=== PATIENT | female | born 1960 | race Hispanic/Latino ===

== ENCOUNTER 2017-09-06 22:08 | Emergency (ER) | payer MEDICARE ==
[2017-09-06] MEDS ORDERED: SODIUM CHLORIDE 0.9% 1000ML 3,000 ML IV ONE (22:30)
[2017-09-06] MEDS ORDERED: CEFTRIAXONE SODIUM 2 GM VIAL ONE (22:30)
[2017-09-06] MEDS ORDERED: ACETAMINOPHEN EXTRA STRENGTH 500 MG TABLET ONE (22:31)
[2017-09-06 22:35] LABS: BASOPHILS % (AUTO) 1.8 % (0.0-5.0); EOSINOPHILS % (AUTO) 1.5 % (0.0-8.0); HEMATOCRIT 48.7 % (36-48); LYMPHOCYTES % (AUTO) 7.7 % (21.0-51.0); MEAN CORPUSCULAR HEMOGLOBIN 30.9 pg (27.0-33.0); MEAN CORPUSCULAR HGB CONC 34.2 g/dL (32.0-36.0); MEAN CORPUSCULAR VOLUME 90.4 fL (79-99); MONOCYTES % (AUTO) 5.1 % (3.0-13.0); NEUTROPHILS % (AUTO) 83.9 % (40.0-77.0); PLATELET COUNT (AUTO) 178 K/uL (130-400); RED BLOOD CELL COUNT(AUTO) 5.39 MIL/uL (4.00-5.50); WHITE BLOOD COUNT (AUTO) 6.7 K/uL (4.8-10.8)
[2017-09-06 22:53] LABS: INR 0.93 (0.85-1.15); PARTIAL THROMBOPLASTIN TIME 29.6 SEC (26.3-35.5); PROTHROMBIN TIME 9.8 SEC (9.6-11.6)
[2017-09-06 22:55] LABS: BILIRUBIN,URINE Negative (NEGATIVE); COLOR,URINE Yellow (YELLOW); GLUCOSE, URINE (UA) Negative (NEGATIVE); KETONES,URINE Negative (NEGATIVE); LEUKOCYTE ESTERASE ,URINE Negative (NEGATIVE); NITRATE,URINE Negative (NEGATIVE); OCCULT BLOOD,URINE Negative (NEGATIVE); PROTEIN,URINE Negative (NEGATIVE)
[2017-09-06 22:59] LABS: APPEARANCE,URINE CLEAR (CLEAR)
[2017-09-06 23:01] LABS: CARBON DIOXIDE 25 mmol/L (21-32); CHLORIDE 103 mmol/L (101-111); CREATININE 0.6 mg/dL (0.5-1.5); GLOMERULAR FILTR. RATE CALC 110 mL/min (>60); GLUCOSE,RANDOM 102 mg/dL (70-105); SODIUM SERUM 138 mmol/L (136-145); UREA NITROGEN, BLOOD 5 mg/dL (7-18)
[2017-09-06 23:20] LABS: ALANINE AMINOTRANSFERASE 39 U/L (12-78); ALBUMIN 3.3 g/dL (3.5-5.0); ASPARTATE AMINOTRANSFERASE 50 U/L (10-37); BILIRUBIN,TOTAL 0.4 mg/dL (0.2-1.0); CREATINE KINASE MB < 0.5 ng/mL (0.5-3.6); CREATINE KINASE, TOTAL 116 U/L (21-232); MYOGLOBIN 46 ng/mL (10-92); TOTAL PROTEIN, SERUM 7.9 g/dL (6.0-8.3); TROPONIN I < 0.04 ng/mL (0.00-0.06)
== END 2017-09-07 00:26 | disposition home or self-care (01) ==
LOC: EDH 22:08
DX: J10.1 Influenza due to other identified influenza virus with other respiratory manifestations (principal); E86.0 Dehydration; M54.9 Dorsalgia, unspecified; E11.9 Type 2 diabetes mellitus without complications; E07.9 Disorder of thyroid, unspecified; Z79.4 Long term (current) use of insulin; Z72.0 Tobacco use; Z88.8 Allergy status to other drugs, medicaments and biological substances
CPT/HCPCS: 36415; 71045; 80053; 81003; 82550; 82553; 83605; 83874; 84484; 85025; 85610; 85730; 87040 ×2; 87088; 87804 ×2; 93005; 96361; 96374; 99285; J0696; J7030

== ENCOUNTER 2022-05-13 08:11 | Emergency (ER) | payer MEDICARE ==
[~2022-05-13] VITALS: Ht 162.6 cm; Wt 99.8 kg
[2022-05-13 09:40] VITALS: BP 130/70
[2022-05-13] MEDS ORDERED: IBUP-1493 PO (09:43)
== END 2022-05-13 10:05 | disposition home or self-care (01) ==
LOC: EDH 08:11
DX: S00.83XA Contusion of other part of head, initial encounter (principal); M25.561 Pain in right knee; M25.512 Pain in left shoulder; M54.2 Cervicalgia; M25.571 Pain in right ankle and joints of right foot; I10 Essential (primary) hypertension; Z88.8 Allergy status to other drugs, medicaments and biological substances; X50.1XXA Overexertion from prolonged static or awkward postures, initial encounter; Z96.651 Presence of right artificial knee joint; Y93.89 Activity, other specified; Y92.89 Other specified places as the place of occurrence of the external cause; Y99.8 Other external cause status
CPT/HCPCS: 70450; 71045; 72125; 73030; 73552; 73590

== ENCOUNTER → 2022-08-26 | Outpatient (CLI) | payer MEDICARE ==
[~2022-08-26] MED LIST: IBUP-1493 PO
== END | disposition home or self-care (01) ==
LOC: SHCH 14:25
PROVIDERS: ATTEND Student in an Organized Health Care Education/Training Program
DX: I51.7 Cardiomegaly (principal); I31.39 Other pericardial effusion (noninflammatory)
CPT/HCPCS: 93306

== ENCOUNTER 2022-10-28 11:33 | Emergency (ER) | payer MEDICARE ==
[~2022-10-28] VITALS: Ht 162.6 cm; Wt 99.8 kg
[~2022-10-28 11:33] MED LIST changes: +BIOT1TAB22 PO; +FLUO20CA36 PO; +HYDR-4064 PO; -IBUP-1493 PO; +LEVO125C4 PO; +MECL-160 PO; +MELO-108 PO; +OMEP40CA21 PO; +PREG75CA75 PO; +VALS160T29 PO; +ZOLP10TA2 PO
[2022-10-28 11:34] VITALS: BP 127/79
[2022-10-28] MEDS ORDERED: MORPHINE 4 MG SYG IVP ONE (12:00)
[2022-10-28] MEDS ORDERED: PROMETHAZINE HCL 25 MG/ML 1ML AMPULE IM SCH (12:00)
[2022-10-28 12:07] LABS: BASOPHILS % (AUTO) 0.4 % (0.0-5.0); EOSINOPHILS % (AUTO) 4.3 % (0.0-8.0); HEMATOCRIT 42.8 % (36-48); LYMPHOCYTES % (AUTO) 18.8 % (21.0-51.0); MEAN CORPUSCULAR HEMOGLOBIN 35.3 pg (27.0-33.0); MEAN CORPUSCULAR HGB CONC 33.2 g/dL (32.0-36.0); MEAN CORPUSCULAR VOLUME 106.5 fL (79-99); NEUTROPHILS % (AUTO) 70.3 % (40.0-77.0); PLATELET COUNT (AUTO) 207 K/uL (130-400); RED BLOOD CELL COUNT(AUTO) 4.02 MIL/uL (4.00-5.50); RED CELL DISTRIBUTION WIDTH 13.5 % (11.0-15.5); WHITE BLOOD COUNT (AUTO) 8.1 K/uL (4.8-10.8)
[2022-10-28 12:16] LABS: CREATININE 0.9 mg/dL (0.5-1.5); POTASSIUM 4.2 mmol/L (3.5-5.1)
[2022-10-28 12:20] LABS: ALBUMIN 3.3 g/dL (3.5-5.0); TOTAL PROTEIN, SERUM 6.8 g/dL (6.0-8.3)
[2022-10-28] MEDS ORDERED: CYCL10TA16 PO (13:29)
[2022-10-28] MEDS ORDERED: OXYC-38 PO ×2 (13:29)
[2022-10-28] MEDS ORDERED: NAPR-1180 PO (13:29)
== END 2022-10-28 14:07 | disposition home or self-care (01) ==
LOC: EDH 11:33
DX: M54.12 Radiculopathy, cervical region (principal); I10 Essential (primary) hypertension; E03.9 Hypothyroidism, unspecified; E11.9 Type 2 diabetes mellitus without complications; E78.00 Pure hypercholesterolemia, unspecified; Z79.899 Other long term (current) drug therapy; Z98.890 Other specified postprocedural states; Z88.8 Allergy status to other drugs, medicaments and biological substances
CPT/HCPCS: 99285; 70450; 96374; 80053; 85025; 36415; 72125; 96372; J2550; J2270

== ENCOUNTER → 2022-11-08 | Outpatient (CLI) | payer MEDICARE ==
[~2022-11-08] MED LIST changes: +CYCL10TA16 PO; +IOHEXOL 350 MG/ML 100ML INFUS..BTL IV ONE; +METOPROLOL TARTRATE 1 MG/ML 5ML VIAL IV ONE; +NAPR-1180 PO; +OXYC-38 PO
== END | disposition home or self-care (01) ==
LOC: RAH 09:35
PROVIDERS: ATTEND Student in an Organized Health Care Education/Training Program
DX: R07.9 Chest pain, unspecified (principal)
CPT/HCPCS: 75574; J3490 ×2; Q9967

== ENCOUNTER 2022-11-28 05:52 | Day surgery (SDC) | payer MEDICARE ==
[2022-11-24 09:22] VITALS: BP 149/82
[2022-11-24 09:38] LABS: BASOPHILS % (AUTO) 0.4 % (0.0-5.0); EOSINOPHILS % (AUTO) 2.4 % (0.0-8.0); HEMATOCRIT 43.9 % (36-48); LYMPHOCYTES % (AUTO) 11.8 % (21.0-51.0); MEAN CORPUSCULAR HEMOGLOBIN 34.2 pg (27.0-33.0); MEAN CORPUSCULAR VOLUME 103.5 fL (79-99); MONOCYTES % (AUTO) 5.4 % (3.0-13.0); NEUTROPHILS % (AUTO) 79.5 % (40.0-77.0); PLATELET COUNT (AUTO) 207 K/uL (130-400); RED BLOOD CELL COUNT(AUTO) 4.24 MIL/uL (4.00-5.50); WHITE BLOOD COUNT (AUTO) 10.4 K/uL (4.8-10.8)
[2022-11-24 09:45] LABS: APPEARANCE,URINE CLEAR (CLEAR); BILIRUBIN,URINE NEGATIVE (NEGATIVE); COLOR,URINE YELLOW (YELLOW); GLUCOSE, URINE (UA) NEGATIVE (NEGATIVE); KETONES,URINE NEGATIVE (NEGATIVE); LEUKOCYTE ESTERASE ,URINE NEGATIVE Leu/uL (NEGATIVE); NITRATE,URINE NEGATIVE (NEGATIVE); OCCULT BLOOD,URINE NEGATIVE (NEGATIVE); PH,URINE 6.5 (5.0-8.0); PROTEIN,URINE NEGATIVE (NEGATIVE); UROBILINOGEN,URINE 3 mg/dL (0.2-1.0)
[2022-11-24 09:46] LABS: CREATININE 0.7 mg/dL (0.5-1.5); POTASSIUM 4.1 mmol/L (3.5-5.1)
[2022-11-24 09:49] LABS: INR 0.93 (0.85-1.15); PROTHROMBIN TIME 10.1 SEC (9.6-11.6)
[2022-11-24 09:50] LABS: PARTIAL THROMBOPLASTIN TIME 30.1 SEC (26.3-35.5)
[2022-11-24 10:00] LABS: B-TYPE NATRIURETIC PEPTIDE 41 pg/mL (0-100)
[2022-11-24 10:09] LABS: BACTERIA,URINE RARE /HPF (None Seen); SQUAMOUS EPITHELIAL CELL,UR RARE /HPF (0-2); WBC,URINE 0-1 /HPF (0-1)
[2022-11-28] VITALS (10 sets, daily range): BP systolic 99–127; BP diastolic 54–78
[~2022-11-28] VITALS: Ht 162.6 cm; Wt 98.2 kg
[~2022-11-28 05:52] MED LIST changes: +ASPI-1197 PO; +ATOR40TA71 PO; -BIOT1TAB22 PO; -CYCL10TA16 PO; -FLUO20CA36 PO; +FLUO40CA49 PO; -IOHEXOL 350 MG/ML 100ML INFUS..BTL IV ONE; -MELO-108 PO; +METO-408 PO; -METOPROLOL TARTRATE 1 MG/ML 5ML VIAL IV ONE; -NAPR-1180 PO; -OXYC-38 PO; +SEMA1PEN3 SQ
[2022-11-28] MEDS ORDERED: 0.9%NACL 1000ML 1,000 ML IV ONE (06:12)
[2022-11-28] MEDS ORDERED: NITROGLYCERIN 50MG VIAL ONE (07:14)
[2022-11-28] MEDS ORDERED: LIDOCAINE HCL 400MG/20ML VIAL ONE (07:14)
[2022-11-28] MEDS ORDERED: IOHEXOL 350 MG/ML 100ML INFUS..BTL IV ONE (07:14)
[2022-11-28] MEDS ORDERED: HEPARIN 10,000 UNIT/10ML (1,000 UNIT/ML) VIAL ONE (07:14)
[2022-11-28] MEDS ORDERED: VERAPAMIL HCL 2.5 MG/ML VIAL ONE (07:14)
[2022-11-28] MEDS ORDERED: MIDAZOLAM HCL 1 MG/ML 2ML VIAL ONE ×2 (07:14→07:35)
[2022-11-28] MEDS ORDERED: FENTANYL CITRATE PF 50 MCG/1 ML 2ML VIAL ONE (07:14)
[2022-11-28] MEDS ORDERED: DiphenhydrAMINE HCL 50 MG/ML VIAL ONE (07:38)
[2022-11-28] MEDS ORDERED: DEXTROSE 50%-WATER 50 ML DISP.SYRIN IV PRN (08:30)
[2022-11-28] MEDS ORDERED: 0.9%NACL 1000ML 1,000 ML IV SCH (08:30)
[2022-11-28] MEDS ORDERED: GLUCAGON 1MG KIT 1 MG ML IM PRN (08:30)
== END 2022-11-28 12:35 | disposition home or self-care (01) ==
LOC: DAH 05:52
PROVIDERS: ATTEND Student in an Organized Health Care Education/Training Program
DX: I25.119 Atherosclerotic heart disease of native coronary artery with unspecified angina pectoris (principal); I10 Essential (primary) hypertension; E78.5 Hyperlipidemia, unspecified; E03.9 Hypothyroidism, unspecified; K21.9 Gastro-esophageal reflux disease without esophagitis; E66.01 Morbid (severe) obesity due to excess calories; F17.200 Nicotine dependence, unspecified, uncomplicated; Z79.01 Long term (current) use of anticoagulants; Z79.899 Other long term (current) drug therapy; Z82.49 Family history of ischemic heart disease and other diseases of the circulatory system; Z68.37 Body mass index [BMI] 37.0-37.9, adult; Z79.82 Long term (current) use of aspirin
CPT/HCPCS: 80048; 83880; 85025; 85610; 85730; 81001; 36415; 71045; 93005; 93458; 82948 ×2; C1769; C1894 ×2; A4649; J1200; J3010; J3490 ×3; J7030; J1644 ×2; J2250 ×2; Q9967; A4215; A4222; A6260; A4221; A4663; A4216; A6206; A4606; Q9965; A4223 ×3; 96360; 96361; 99156; 99157

== ENCOUNTER 2023-05-24 15:02 | Emergency (ER) | payer MEDICARE ==
[~2023-05-24] VITALS: Ht 157.5 cm; Wt 99.8 kg
[~2023-05-24 15:02] MED LIST changes: -MECL-160 PO; +MECL-302 PO; -PREG75CA75 PO; +PREG75CA76 PO
[2023-05-24] MEDS ORDERED: KETOROLAC 30MG VIAL (30MG/ML) IM ONE (15:30)
[2023-05-24] MEDS ORDERED: IBUP-2070 PO (16:33)
[2023-05-24] MEDS ORDERED: HYDROCODONE/ACETAMINOPHEN 5/325 MG TAB PO ONE (17:00)
[2023-05-24] MEDS ORDERED: ONDANSETRON ODT 4MG TAB SL ONE (17:00)
[2023-05-24 17:53] VITALS: BP 138/78; PULSE 68; RESP 18; O2SAT 99
== END 2023-05-24 18:09 | disposition home or self-care (01) ==
LOC: EDH 15:02
DX: M25.561 Pain in right knee (principal); M25.562 Pain in left knee; M25.572 Pain in left ankle and joints of left foot; Z79.82 Long term (current) use of aspirin; Z79.899 Other long term (current) drug therapy; Z98.890 Other specified postprocedural states; Z88.8 Allergy status to other drugs, medicaments and biological substances
CPT/HCPCS: 99283; 73562; 96372; J1885

== ENCOUNTER → 2023-08-30 | Emergency (ER) | payer MEDICARE ==
[~2023-08-30] VITALS: Ht 162.6 cm; Wt 99.8 kg
[~2023-08-30] MED LIST changes: +IBUP-2070 PO; +MECL-160 PO; -MECL-302 PO
[2023-08-30 11:02] VITALS: BP 144/98; PULSE 85; RESP 18
[2023-08-30 11:32] LABS: BASOPHILS # (AUTO) 0.04 K/uL (0.00-0.20); BASOPHILS % (AUTO) 0.4 % (0.0-5.0); EOSINOPHILS # (AUTO) 0.09 K/uL (0.00-0.70); EOSINOPHILS % (AUTO) 0.8 % (0.0-8.0); HEMATOCRIT 47.4 % (36-48); IMMATURE GRANULOCYTE ABSOLUTE 0.06 K/uL (0-1); LYMPHOCYTES # (AUTO) 1.2 K/uL (1.0-4.8); LYMPHOCYTES % (AUTO) 11.1 % (21.0-51.0); MEAN CORPUSCULAR HEMOGLOBIN 29.8 pg (27.0-33.0); MEAN CORPUSCULAR HGB CONC 32.5 g/dL (32.0-36.0); MEAN CORPUSCULAR VOLUME 91.7 fL (79-99); MONOCYTES # (AUTO) 0.7 K/uL (0.1-1.0); MONOCYTES % (AUTO) 6.3 % (3.0-13.0); NEUTROPHILS # (AUTO) 8.9 K/uL (1.8-7.7); NEUTROPHILS % (AUTO) 80.9 % (40.0-77.0); PLATELET COUNT (AUTO) 252 K/uL (130-400); RED BLOOD CELL COUNT(AUTO) 5.17 MIL/uL (4.00-5.50); RED CELL DISTRIBUTION WIDTH 14.2 % (11.0-15.5)
[2023-08-30 11:43] LABS: CREATININE 1.1 mg/dL (0.5-1.5); POTASSIUM 3.8 mmol/L (3.5-5.1)
[2023-08-30 11:47] LABS: ALBUMIN 3.5 g/dL (3.5-5.0); TOTAL PROTEIN, SERUM 7.6 g/dL (6.0-8.3)
[2023-08-30 11:54] LABS: APPEARANCE,URINE CLEAR (CLEAR); BILIRUBIN,URINE NEGATIVE (NEGATIVE); COLOR,URINE YELLOW (YELLOW); GLUCOSE, URINE (UA) NEGATIVE (NEGATIVE); KETONES,URINE 5 mg/dL (NEGATIVE); LEUKOCYTE ESTERASE ,URINE NEGATIVE Leu/uL (NEGATIVE); NITRATE,URINE NEGATIVE (NEGATIVE); OCCULT BLOOD,URINE NEGATIVE (NEGATIVE); PROTEIN,URINE 20 mg/dL (NEGATIVE); UROBILINOGEN,URINE 0.2 mg/dL (0.2-1.0)
[2023-08-30 11:59] LABS: ADD UA MICROSCOPIC YES
[2023-08-30 12:00] LABS: MUCUS,URINE RARE LPF (None Seen); SQUAMOUS EPITHELIAL CELL,UR RARE /HPF (0-2)
== END ==
LOC: EDH 10:17
DX: R10.9 Unspecified abdominal pain (principal); R11.0 Nausea; Z53.21 Procedure and treatment not carried out due to patient leaving prior to being seen by health care provider
CPT/HCPCS: 36415; 80053; 81001; 83690; 85025; 99281

== ENCOUNTER → 2024-06-05 | Outpatient (CLI) | payer MEDICARE ==
[~2024-06-05] MED LIST changes: -MECL-160 PO; +MECL-302 PO
== END | disposition home or self-care (01) ==
LOC: RAH 13:26
PROVIDERS: ATTEND Family Medicine
DX: Z12.31 Encounter for screening mammogram for malignant neoplasm of breast (principal)
CPT/HCPCS: 77067

== ENCOUNTER → 2024-10-09 | Outpatient (CLI) | payer MEDICARE ==
[~2024-10-09] MED LIST changes: -LEVO125C4 PO; +LEVO125C5 PO; +ZOLP-685 PO; -ZOLP10TA2 PO
--- NOTE | 2024-10-09 17:07 | HMCIMG ---
FACIAL BONES COMP 3+VWS REASON: Contusion of other part of head, initial encounter. COMPARISON: None TECHNIQUE: 3 images of facial bones were obtained. FINDINGS: No acute displaced fracture is seen. IMPRESSION: Findings as described above.
--- NOTE | 2024-10-09 17:12 | HMCIMG ---
KNEE/PATELLA 1-2VWS LT HISTORY: Injury COMPARISON: None TECHNIQUE: 2 images of the left knee were obtained. FINDINGS: Total left knee replacement changes are seen. Bony osteopenia is seen. There is no acute displaced fracture or dislocation. Degenerative changes are seen. IMPRESSION: 1. Findings as described above.
--- NOTE | 2024-10-09 17:12 | HMCIMG ---
CERV SPINE 2-3VWS HISTORY: Injury COMPARISON: None FINDINGS: 4 images of cervical spine were obtained. Fixation pins and screws are seen traversing the C4, C5-C6 with disc fusion. Anterior osteophyte is seen at anterior aspect of C6. There are degenerative changes with some posterior spondylosis. There is straightening of normal lordotic curvature which may be related to muscle spasm or positioning. No loss of vertebral height is seen. No fracture or dislocation is seen. Degenerative changes are seen. IMPRESSION: 1. No fracture is seen. DJD.
== END | disposition home or self-care (01) ==
LOC: RAH 12:02
PROVIDERS: ATTEND Family Medicine
DX: S00.83XA Contusion of other part of head, initial encounter (principal); S80.912A Unspecified superficial injury of left knee, initial encounter; S14.101A Unspecified injury at C1 level of cervical spinal cord, initial encounter; M02.38 Reiter's disease, vertebrae; M47.812 Spondylosis without myelopathy or radiculopathy, cervical region; M17.12 Unilateral primary osteoarthritis, left knee; Z96.652 Presence of left artificial knee joint; X58.XXXA Exposure to other specified factors, initial encounter; Y93.89 Activity, other specified; Y92.89 Other specified places as the place of occurrence of the external cause; Y99.8 Other external cause status
CPT/HCPCS: 70150; 72040; 73560

== ENCOUNTER 2024-11-27 16:28 | Emergency (ER) | payer MEDICARE ==
[~2024-11-27] VITALS: Ht 160 cm; Wt 99.8 kg
--- NOTE | 2024-11-27 17:10 | ERN ---
ED Note History of Present Illness Stated Complaint: VAG PAIN Chief Complaint: Pelvic Pain Time Seen by MD: 16:50 Time Seen by Midlevel: 16:51 Dictation: 64-year-old female presents to the emergency department due to reported having suprapubic pain that began 3 days ago. Patient states that the pain has been consistent. She reports having her pain level as an 8/10. Patient states that she did have a temperature yesterday of 101 F. She states that she finds it painful when she wipes after urinating. Patient states that she is concerned due to report of having had urethral mesh that was applied and 10/22/24 in [facility]. Currently, she denies having any fever but does report having some chills. Allergies: Coded Allergies: adhesive tape (Unverified Allergy, Unknown, 03/19/23) hydrochlorothiazide (Unverified Allergy, Unknown, 10/04/22) lisinopril (Unverified Allergy, Unknown, 05/13/22) varenicline (Unverified Allergy, Unknown, 03/19/23) Emergency Care CHIP TESTER: None Home Meds Active Scripts Ibuprofen (Ibuprofen) 600 Mg Tablet, 600 MG PO Q6H PRN for PAIN, #20 TAB Prov:BERENICE COURTNEY MD 05/24/23 Reported Medications Semaglutide (Ozempic) 1 Mg/0.75 Ml Pen.injctr, 1 MG SQ QWEEK 11/24/22 Aspirin (Aspirin) 81 Mg Tab.chew, 81 MG PO HS, TAB.CHEW 11/24/22 Metoprolol Succinate (Metoprolol Succinate) 25 Mg Tab.er.24h, 25 MG PO HS, TAB METOPROLOL SUCCINATE INCREASE TO 50 MG BY MOUTH AT NIGHT 11/24/22 Atorvastatin Calcium (Atorvastatin Calcium) 40 Mg Tablet, 40 MG PO HS, TAB 11/24/22 Fluoxetine HCl (Fluoxetine HCl) 40 Mg Capsule, 40 MG PO DAILY, CAP 11/24/22 Levothyroxine Sodium (Levothyroxine) 125 Mcg Capsule, 125 MCG PO AM, CAP 10/04/22 Hydrocodone/Acetaminophen (Hydrocodon-Acetaminoph 7.5-325) 1 Each Tablet, 1 EACH PO TIDP PRN for PAIN, TAB 10/04/22 Zolpidem Tartrate (Ambien) 10 Mg Tablet, 10 MG PO HS, TAB 10/04/22 Meclizine HCl (Meclizine HCl) 25 Mg Tablet, 25 MG PO Q12H PRN for DIZZY, TAB 10/04/22 Valsartan (Valsartan) 160 Mg Tablet, 160 MG PO HS, TAB 10/04/22 Pregabalin (Pregabalin) 75 Mg Capsule, 75 MG PO BID, CAP 10/04/22 Omeprazole (Omeprazole) 40 Mg Capsule.dr, 40 MG PO AM, CAP 10/04/22 Past Medical History Past Medical History: Diabetes-Type II, Hypertension, Other Additional Past Medical Hx: LOWER DISC HERNIATION Surgical History: Hysterectomy, Other, Surgical History Other: BILATERAL TOTAL KNEE REPLACEMENTS Family History: HTN Social History: Negative, Lives with family RN Note Reviewed/Agreed w/PFSH: Yes Review of System Dictation Constitutional: Fever, chills Abdomen/GI: Abdominal pain Initial Vital Sign VS Vital Signs Date Time Temp Pulse Resp B/P (MAP) Pulse Ox O2 Delivery O2 Flow Rate FiO2 11/27/24 16:31 98.4 86 17 102/55 98 Room Air 0 11/27/24 16:56 21 Physical Exam Dictation General: awake, alert, NAD Head/Face: Normocephalic, atraumatic Eyes: PERRL, EOMI ENT: Oral mucosa moist Neck: Trachea midline, supple Cardiovascular: RRR, no edema Respiratory: Symmetrical, non-labored Abdomen: Soft, suprapubic tenderness, voluntary guarding, non-distended, no guarding. Skin: Warm, dry, good turgor, no rash MS/Extremity: Pulses equal, no cyanosis, neurovascular intact, FROM Neuro: COAx4, GCS 15, steady gait, Psych: Normal behavior, mood, and affect normal Results (Laboratory/Radiology) Laboratory/Radiology Laboratory Tests Test 11/27/24 17:18 11/27/24 18:03 White Blood Count 7.1 K/uL (4.8-10.8) Red Blood Count 4.78 MIL/uL (4.00-5.50) Hemoglobin 14.2 g/dL (12.0-16.0) Hematocrit 43.1 % (36-48) Mean Corpuscular Volume 90.2 fL (79-99) Mean Corpuscular Hemoglobin 29.7 pg (27.0-33.0) Mean Corpuscular Hemoglobin Concent 32.9 g/dL (32.0-36.0) Red Cell Distribution Width 15.0 % (11.0-15.5) Platelet Count 207 K/uL (130-400) Mean Platelet Volume 11.7 fL (7.5-10.5) H Immature Granulocyte % (Auto) 0.4 % (0-1) Neutrophils (%) (Auto) 66.3 % (40.0-77.0) Lymphocytes (%) (Auto) 22.4 % (21.0-51.0) Monocytes (%) (Auto) 7.7 % (3.0-13.0) Eosinophils (%) (Auto) 2.8 % (0.0-8.0) Basophils (%) (Auto) 0.4 % (0.0-5.0) Neutrophils # (Auto) 4.7 K/uL (1.8-7.7) Lymphocytes # (Auto) 1.6 K/uL (1.0-4.8) Monocytes # (Auto) 0.6 K/uL (0.1-1.0) Eosinophils # (Auto) 0.20 K/uL (0.00-0.70) Basophils # (Auto) 0.03 K/uL (0.00-0.20) Absolute Immature Granulocyte (auto 0.03 K/uL (0-1) Nucleated Red Blood Cells 0.0 % (0.0-0.19) Sodium Level 140 mmol/L (136-145) Potassium Level 4.2 mmol/L (3.5-5.1) Chloride Level 107 mmol/L (101-111) Carbon Dioxide Level 29 mmol/L (21-32) Blood Urea Nitrogen 20 mg/dL (7-18) H Creatinine 1.0 mg/dL (0.5-1.0) Glomerular Filtration Rate Calc 63 mL/min (>90) Random Glucose 89 mg/dL (70-105) Total Calcium 8.7 mg/dL (8.5-10.1) Total Bilirubin 0.3 mg/dL (0.2-1.0) Aspartate Amino Transf (AST/SGOT) 18 U/L (10-37) Alanine Aminotransferase (ALT/SGPT) 19 U/L (12-78) Alkaline Phosphatase 81 U/L (50-136) Total Protein 6.9 g/dL (6.0-8.3) Albumin 3.2 g/dL (3.5-5.0) L Urine Color LIGHT-YELLOW (YELLOW) Urine Appearance CLEAR (CLEAR) Urine pH 5.5 (5.0-8.0) Urine Specific [place] 1.007 (1.001-1.031) Urine Protein NEGATIVE mg/dL (NEGATIVE) Urine Glucose (UA) NEGATIVE mg/dL (NEGATIVE) Urine Ketones NEGATIVE mg/dL (NEGATIVE) Urine Occult Blood NEGATIVE (NEGATIVE) Urine Nitrate NEGATIVE (NEGATIVE) Urine Bilirubin NEGATIVE mg/dL (NEGATIVE) Urine Urobilinogen 0.2 mg/dL (0.2-1.0) Urine Leukocyte Esterase 75 Lionel/uL (NEGATIVE) H Urine RBC 0-1 /HPF (0-1) Urine WBC 2-5 /HPF (0-1) H Urine Squamous Epithelial Cells RARE /HPF (0-2) Urine Bacteria None /HPF (None Seen) Labs Reviewed?: Yes CT Scan Comment: CT abdomen/pelvis with IV contrast with no pertinent findings. ED Course ED Course Orders Procedure Category Date Status Time Cbc With Differential LAB 11/27/24 Complete 17:06 Comprehensive LAB 11/27/24 Complete Metabolic Panel 17:06 Urinalysis Profile LAB 11/27/24 Complete 17:06 Ct Abdomen/Pelvis CT 11/27/24 Resulted W/Contrast 17:06 0.9%Nacl 1000ml (Ns PHA 11/27/24 Complete 1000ml) 17:30 Ketorolac PHA 11/27/24 Complete Tromethamine 30mg/Ml 17:30 Culture Urine ANA 11/27/24 In Process 18:12 Iohexol (Omnipaque) PHA 11/27/24 Complete 18:17 Current Medications Medications (Trade) Dose Ordered Sig/Kwaku Route PRN Reason Start Time Stop Time Status Last Admin Dose Admin Iohexol (Omnipaque) 35,000 mg STK-MED ONCE IV 11/27/24 18:17 11/27/24 18:17 DC Ketorolac Tromethamine (toRADol) 30 mg ONCE ONCE IVP 11/27/24 17:30 11/27/24 17:31 DC 11/27/24 17:52 Sodium Chloride 1,000 ml @ 0 mls/hr ONCE ONCE IV 11/27/24 17:30 11/27/24 17:31 DC 11/27/24 17:51 Vital Signs Date Time Temp Pulse Resp B/P (MAP) Pulse Ox O2 Delivery O2 Flow Rate FiO2 11/27/24 18:05 98.1 81 18 100/46 98 Room Air* 0 21 11/27/24 16:56 98.1 81 18 98/52 98 Room Air* 0 21 11/27/24 16:31 98.4 86 17 102/55 98 Room Air 0 Medical Decision Making MDM MDM: Differential diagnosis: Acute abdominal pain, acute UTI, small-bowel obstruction. Rationale: Tests considered and ordered secondary to shared decision making include: Previous outside records reviewed: Old ER visits. Risk of complication and/or morbidity or mortality of patient management: None Medications-Per medication reconciliation Need for hospitalization: Patient does not meet criteria for hospitalization. Need for emergency major/minor surgery: No There are no social concerns with this patient. Prescription drug management Prescriptions will include symptomatic care Patient's prior external medical records from other ER visits were reviewed by me as indicated. Prior testing and results from previous visits were reviewed. Prior tests were taken into account with medical decision making and resource utilization, independent historian/historians were used to obtain complete medical history. I independently interpreted the test that were performed, results were reviewed by me and considered findings on radiology if ordered. Medical management and examination interpretation discussions were had by me with other qualified healthcare professionals as indicated for the patient's care. DX & DISP Disposition: Discharge Departure Impression: Primary Impression: Acute abdominal pain Additional Impression: Acute UTI Condition: Stable Scripts Cephalexin (Cephalexin) 500 Mg Tablet 1 TAB PO BID for 7 Days, #14 TAB 0 Refills Prov: MAGED CRUZ 11/27/24 Referrals: ALBERTO RODRIGUEZ MD (PCP) MAGED CRUZ Nov 27, 2024 17:10
[2024-11-27 17:26] LABS: BASOPHILS # (AUTO) 0.03 K/uL (0.00-0.20); BASOPHILS % (AUTO) 0.4 % (0.0-5.0); EOSINOPHILS % (AUTO) 2.8 % (0.0-8.0); HEMATOCRIT 43.1 % (36-48); IMMATURE GRANULOCYTE ABSOLUTE 0.03 K/uL (0-1); LYMPHOCYTES # (AUTO) 1.6 K/uL (1.0-4.8); LYMPHOCYTES % (AUTO) 22.4 % (21.0-51.0); MEAN CORPUSCULAR HEMOGLOBIN 29.7 pg (27.0-33.0); MEAN CORPUSCULAR HGB CONC 32.9 g/dL (32.0-36.0); MEAN CORPUSCULAR VOLUME 90.2 fL (79-99); MONOCYTES # (AUTO) 0.6 K/uL (0.1-1.0); MONOCYTES % (AUTO) 7.7 % (3.0-13.0); NEUTROPHILS # (AUTO) 4.7 K/uL (1.8-7.7); NEUTROPHILS % (AUTO) 66.3 % (40.0-77.0); PLATELET COUNT (AUTO) 207 K/uL (130-400); RED BLOOD CELL COUNT(AUTO) 4.78 MIL/uL (4.00-5.50); WHITE BLOOD COUNT (AUTO) 7.1 K/uL (4.8-10.8)
[2024-11-27 17:42] LABS: POTASSIUM 4.2 mmol/L (3.5-5.1)
[2024-11-27 17:44] LABS: ALBUMIN 3.2 g/dL (3.5-5.0); BILIRUBIN,TOTAL 0.3 mg/dL (0.2-1.0); TOTAL PROTEIN, SERUM 6.9 g/dL (6.0-8.3)
[2024-11-27] MEDS: 0.9%NACL 1000ML 1,000 ML IV ONE (17:51)
[2024-11-27] MEDS: ketOROlac 30MG VIAL (30MG/ML) IVP ONE (17:52)
[2024-11-27 18:10] LABS: APPEARANCE,URINE CLEAR (CLEAR); BILIRUBIN,URINE NEGATIVE (NEGATIVE); COLOR,URINE LIGHT-YELLOW (YELLOW); GLUCOSE, URINE (UA) NEGATIVE (NEGATIVE); KETONES,URINE NEGATIVE (NEGATIVE); LEUKOCYTE ESTERASE ,URINE 75 Leu/uL (NEGATIVE); NITRATE,URINE NEGATIVE (NEGATIVE); OCCULT BLOOD,URINE NEGATIVE (NEGATIVE); PH,URINE 5.5 (5.0-8.0); PROTEIN,URINE NEGATIVE (NEGATIVE); UROBILINOGEN,URINE 0.2 mg/dL (0.2-1.0)
[2024-11-27 18:11] LABS: ADD UA MICROSCOPIC YES
[2024-11-27 18:13] LABS: RBC,URINE 0-1 /HPF (0-1); SQUAMOUS EPITHELIAL CELL,UR RARE /HPF (0-2)
[2024-11-27] MEDS ORDERED: IOHEXOL 350 MG/ML 100ML INFUS..BTL IV ONE (18:17)
--- NOTE | 2024-11-27 19:02 | HMCIMG ---
CT ABDOMEN/PELVIS W/CONTRAST REASON: pain COMPARISON: 03/19/2023. TECHNIQUE: Images are obtained from lung bases to the symphysis pubis following IV contrast, 100 cc Omnipaque 350. FINDINGS: Lung bases are clear. There are no focal liver lesions. There are normal-appearing kidneys.. Spleen and pancreas appear unremarkable. The gallbladder appears normal as well. Bowel loops appear unremarkable. This includes normal appearance of the appendix There is no evidence of free fluid or intraperitoneal air. There are no focal fluid collections. Aorta and retroperitoneum appear normal as do pelvic soft tissue structures. The anterior abdominal wall is intact. Osseous structures appear unremarkable. IMPRESSION: 1. Negative postcontrast CT abdomen and pelvis. CT was performed with one or more following dose reduction techniques: automated exposure control, adjustment of the mA and kv according to patient's size, or use of a iterative reconstruction technique.
[2024-11-27] MEDS ORDERED: CEPH500T PO (19:41)
[2024-11-27 20:05] VITALS: BP 98/55; PULSE 79; RESP 18; TEMP 97.9; O2SAT 100
== END 2024-11-27 20:15 | disposition home or self-care (01) ==
LOC: EDH 16:28
DX: R10.2 Pelvic and perineal pain (principal); N39.0 Urinary tract infection, site not specified; E11.9 Type 2 diabetes mellitus without complications; I10 Essential (primary) hypertension; Z79.82 Long term (current) use of aspirin; Z79.85 Long-term (current) use of injectable non-insulin antidiabetic drugs; Z79.899 Other long term (current) drug therapy; Z88.8 Allergy status to other drugs, medicaments and biological substances; Z90.710 Acquired absence of both cervix and uterus; Z96.653 Presence of artificial knee joint, bilateral
CPT/HCPCS: 99285; 74177; 96374; 80053; 85025; 87086; 81001; 36415; J1885; J7030; Q9967

== ENCOUNTER 2025-01-02 06:42 | Observation (INO) | payer MEDICARE ==
[2024-12-31 10:12] VITALS: BP 109/70; PULSE 66; RESP 15; TEMP 97.9
[2024-12-31 10:16] LABS: IMMATURE GRANULOCYTE ABSOLUTE 0.04 K/uL (0-1); NUCLEATED RED BLOOD CELLS 0.0 % (0.0-0.19); PLATELET COUNT (AUTO) 190 K/uL (130-400); RED BLOOD CELL COUNT(AUTO) 5.02 MIL/uL (4.00-5.50); RED CELL DISTRIBUTION WIDTH 14.6 % (11.0-15.5); WHITE BLOOD COUNT (AUTO) 8.2 K/uL (4.8-10.8)
[2024-12-31 10:30] LABS: CREATININE 1.1 mg/dL (0.5-1.0); GLOMERULAR FILTR. RATE CALC 56.0 mL/min (>90); GLUCOSE,RANDOM 80.0 mg/dL (70-105); SODIUM SERUM 143.0 mmol/L (136-145); UREA NITROGEN, BLOOD 16.0 mg/dL (7-18)
[2024-12-31 10:32] LABS: APPEARANCE,URINE CLEAR (CLEAR); GLUCOSE, URINE (UA) NEGATIVE (NEGATIVE); LEUKOCYTE ESTERASE ,URINE NEGATIVE Leu/uL (NEGATIVE); NITRATE,URINE NEGATIVE (NEGATIVE); OCCULT BLOOD,URINE NEGATIVE (NEGATIVE)
[2024-12-31 10:36] LABS: ADD UA MICROSCOPIC NO
--- NOTE | 2024-12-31 11:03 | EKG ---
[facility] Test Date: 2024-12-31 Test Time: 10:03:24 Pat Name: ROSE BEVERLY Department: [facility] Room: Gender: F Model Set Artist: [id number] : 1960 Requested By: AIDA JARA Order Number: [id number] Reading MD: Clara Jimenez Measurements Intervals [place] Rate: 63 P: 21 MI: 169 QRS: -15 QRSD: 93 T: 28 QT: 430 QTc: 441 Interpretive Statements Sinus rhythm Low voltage, precordial leads Compared to ECG 03/19/2023 09:18:44 Low QRS voltage now present Electronically Signed On 12-31-2024 14:01:52 CDT by Clara Jimenez Please click the below link to view image of tracing.
[2024-12-31 11:27] LABS: INR 0.95 (0.85-1.15)
--- NOTE | 2025-01-01 04:10 | HMCIMG ---
EXAM: CR Chest, 1 view CLINICAL HISTORY: Preoperative evaluation. COMPARISON: Chest radiograph dated 11/24/2022. FINDINGS: The lungs show no infiltrates or other acute findings. No pleural effusion or pneumothorax. The cardiomediastinal silhouette is within normal limits. No acute osseous abnormality. Metal implant in the cervical spine. IMPRESSION: No acute cardiopulmonary process is evident. No interval changes. /[place]
[~2025-01-02] VITALS: Ht 160 cm; Wt 99.1 kg
[2025-01-02] VITALS (20 sets, daily range): BP systolic 112–141; BP diastolic 63–101; PULSE 77–97; RESP 15–26; TEMP 97.7–98; O2SAT 96–97
[~2025-01-02 06:42] MED LIST changes: -ASPI-1197 PO; -ATOR40TA71 PO; +EZET10TA48 PO; -FLUO40CA49 PO; -IBUP-2070 PO; -LEVO125C5 PO; +LEVO150 PO; +LINA145C PO; +LORA-192 PO; -MECL-302 PO; +PREG150C47 PO; -PREG75CA76 PO; -SEMA1PEN3 SQ; +TIRZ10PE SQ; +VARE1TAB24 PO; +VENL150T3 PO; +VIBE75TA PO; +trintellix PO
[2025-01-02] MEDS ORDERED: VERAPAMIL HCL 2.5 MG/ML VIAL ONE (11:57)
[2025-01-02] MEDS ORDERED: LIDOCAINE HCL 400MG/20ML VIAL ONE (11:57)
[2025-01-02] MEDS ORDERED: IOHEXOL 350 MG/ML 100ML INFUS..BTL IV ONE ×3 (11:57→15:31)
[2025-01-02] MEDS ORDERED: HEParin-NS 1,000 UNIT/500 ML 1,000 ML IV ONE (11:58)
[2025-01-02] MEDS ORDERED: NITROGLYCERIN 50MG VIAL ONE (11:58)
[2025-01-02] MEDS ORDERED: MIDAZOLAM HCL 1 MG/ML 2ML VIAL ONE ×4 (12:36→15:34)
[2025-01-02] MEDS ORDERED: ASPIRIN 325MG EC TAB PO ONE (13:02)
[2025-01-02] MEDS ORDERED: HEParin-NS 1,000 UNIT/500 ML 500 ML IV ONE (14:02)
[2025-01-02] MEDS ORDERED: LIDOCAINE 2G/250ML 0 ML IV ONE (14:07)
[2025-01-02] MEDS ORDERED: LIDOCAINE PF 100MG/5ML (2%) SYRINGE 5ML ONE (14:08)
[2025-01-02] MEDS ORDERED: ATROPINE 1MG SYG IVP ONE (15:43)
[2025-01-02] MEDS ORDERED: GLUCAGON 1MG KIT 1 MG ML IM PRN ×2 (16:30→22:00)
[2025-01-02] MEDS ORDERED: DEXTROSE 50%-WATER 50 ML DISP.SYRIN IV PRN ×2 (16:30→22:00)
--- NOTE | 2025-01-02 16:53 | PRN ---
PROCEDURE REPORT DATE OF PROCEDURE: Jan 02, 2025 BUSINESS OBJECTS CONSULTANT: [ Aida contreras MD] PROCEDURE PERFORMED: Conscious sedation Ultrasound guided right radial artery access Selective left coronary artery angiogram Selective right coronary artery angiogram Left heart catheterization IVUS of the LAD and left main Status post IVUS guided PTCA/PCI of the proximal to mid LAD x4 (4.5 proximally, 3.5 mid segment and 2.75 in the mid to distal segment) Left main dissection status post successful IVUS guided PTCA/PCI of the left main into ostial LAD x1 (5 x 30 mm CHAU) Status post PTCA/PCI of the ostial proximal left circumflex (4.5 x 18 mm CHAU) TR band 13 christianne over right radial artery INDICATION: Abnormal coronary CTA DESCRIPTION OF PROCEDURE: After informed consent was obtained, the patient was prepped and draped in the usual sterile fashion. A 6 [place] arterial sheath was inserted in the right radial artery using ultrasound guidance with first pass wall puncture. The arterial sheath was aspirated and flushed. A 6 [place] JL 3.5 was then advanced to the ascending aorta over an exchange length J-tip guidewire, was aspirated and flushed, and was used for selective coronary angiograms in multiple obliquities. A JR-4 was advanced in a similar fashion to the ascending aorta over the J-tipped guidewire and was used for selective right coronary angiograms in multiple oblique views with findings as outlined below. The JR-4 catheter advanced into the LV and pressures were obtained with a pull-back across the aortic valve. Following review of the angiographic images decision was made to intervene on patient's critical LAD stenosis which was calcified with an aneurysmal proximal segment. We exchanged the diagnostic catheter for a six [place] XB three guide catheter was advanced over the wire and similar fascia and used to engage the left main coronary [place]. [place] [address] units of IV heparin and loading doses of Plavix and falling therapeutic ACT we advanced a Prowater into the mid LAD under fluoroscopic guidance. We are met with significant resistance so we advanced a FineCross microcatheter over the wire to the mid LAD and we performed a limited distal tip injection revealing a significant mid LAD dissection. At this time we are able to traverse the Prowater into the true lumen of the distal LAD. At this point we began with PTCA using a 3 x 20 mm compliant balloon to nominal pressure serially within the mid proximal segments of the LAD to nominal pressures. We then proceeded with IVUS imaging of the LAD and left main confirming the dissection and significant calcified disease extending into the proximal LAD. We deployed a 2.75 by 22 mm dieog [place] drug-eluting stent within the mid LAD to nominal pressures. We then deployed a 3.5 x 15 mm diego drug-eluting stent within the mid LAD to nominal pressures in overlapping fashion. We post dilated the stents using a 3.5 by 20 mm noncompliant balloon to sub nominal pressures in the distal segment and nominal pressures in the mid segment. We then deployed a 4.5 by 18 mm diego [place] drug-eluting stent in the proximal LAD to nominal pressures in overlapping fashion. We began noting significant contrast hang up within the left main and nonspecific ST-T wave changes. On further review we noted a significant diffuse left main dissection extending into the left circ and proximal LAD. At this time we used a 014 runthrough wire to wire the left circumflex and we attempted to perform the MARIEL and protrusion technique but we are met with significant resistance passing any balloons and wires within the six guide. We deployed a 4 x 18 mm diego [place] drug-eluting stent within the ostial to prox circumflex to nominal pressures. We then pre-dilated the left main using a five by 30 mm compliant balloon to nominal pressures. We then deployed a 5 x 30 mm drug-eluting stent within the left main extending into the proximal LAD to nominal pressures. This was post dilated with a 5 x 15 mm noncompliant balloon to 14 and 16 CHRISTIANNE respectively. Final angiogram revealed restorationist of JUAN three flow with no dissections or perforations. At this time given excessive contrast use and radiation decision was made to terminate the procedure. All wires and catheters removed from the body and a A TR band was placed over right radial artery. FLUOROSCOPY TIME: 48.5 min LEFT HEART HEMODYNAMICS: LVEDP 12 mm Hg and no gradient Ao CORONARY ANGIOGRAM: LEFT MAIN: Patent and 0% stenosis. Gives rise to LCx and LAD. LEFT ANTERIOR DESCENDING: Large vessel giving rise to two Diagonal branches. T heavily and diffusely calcified with a 80 90% prox to mid focal lesion with an aneurysmal segment. And 70-80% diffuse mid to distal calcified stenosis. D1 and D2 are large, calcified and tortuous LEFT CIRCUMFLEX: Large and gives rise to two OM branches. Luminal irregularities. OM2 patent RIGHT CORONARY ARTERY: Large, dominant vessel giving rise to PDA and PL branches. Proximal aneurysmal segment with no significant disease. Luminal irregularities. PDA and PLB are patent HEMOSTASIS: TR band 12 christianne over right radial artery INTERVENTIONS: Status post IVUS guided PTCA/PCI of the proximal to mid LAD x4 (4.5 proximally, 3.5 mid segment and 2.75 in the mid to distal segment) COMPLICATIONS: Left main dissection status post successful IVUS guided PTCA/PCI of the left main into ostial LAD x1 (5 x 30 mm CHAU) Status post PTCA/PCI of the ostial proximal left circumflex (4.5 x 18 mm CHAU) FINDINGS: Normal coronary anatomy and severe calcified prox to mid LAD disease status post revascularization Case was complicated by left main dissection which was treated with PTCA/PCI of the left main and left circ ESTIMATED BLOOD LOSS: 5 cc RECOMMENDATIONS/INSTRUCTIONS: Aggressive risk factor modification. Patient required DAPT (aspirin 81 mg q.day/Plavix 75 mg daily) x6 months in addition high-intensity statin therapy and Toprol-XL Radial precautions and we will admit the patient to observation to monitor renal function Plan for discharge home tomorrow morning if no anginal symptoms and renal function was stable CONTRAST DELIVERED TO PATIENT (mL): 350cc AIDA Asencio MD, MD Jan 02, 2025 16:53
--- NOTE | 2025-01-02 17:01 | NUR ---
pt admitted to [facility] room 208. pt family aware and taken to room along with pt belongings. Dr Milligan will speak to family in room 208.
[2025-01-02] MEDS: 0.9%NACL 1000ML 1,000 ML IV SCH (17:57)
--- NOTE | 2025-01-02 21:31 | HP ---
[facility] HISTORY [facility] PHYSICAL Date of Service: Jan 02, 2025 Time of Service: 21:31 PCP Kayley Dodd HISTORY OF PRESENT ILLNESS: This is a 64-year-old female with past medical history of diabetes, hypertension, hyperlipidemia and hypothyroidism,GERD , mild to moderate nonobstructive CAD ,active smoker (10 cigarette/day quits last week) and morbid obesity with gastric sleeve (5years ago ) who underwent a left Cardiac catheterization via right radial artery performed by Dr.James Milligan.Patient seen and examined in room 208 awake,alert and coherent,appears comfortable.Patient denies chest pain,palpitation,shortness of breath,nausea and vomiting.Patient reports she has a chronic back pain .Patient states her condition started after her dad 2 years ago,since then life has been so stressful and she started experiencing palpitation on exertion and will resolve with rest.Episodes of palpitation soon comes more frequently because she started feeling dizzy and has been becoming more frequent reason why she went to see a dispensing operator where she had been worked up.Today patient received 4 stents to proximal to mid LAD and x1 stent to left Main into ostial LAD and to the ostial proximal left circumflex x 1. Latest vital signs 97.7, heart rate 90, blood pressure 133/83, 96% on room air. We will continue to admit patient in PCCU for further medical management. REVIEW OF SYSTEMS CONSTITUTIONAL: Denies fevers, chills, or night sweats. No unintentional weight loss reported. NEUROLOGICAL: Denies headache, amaurosis fugax, motor weakness, sensory deficit, vertigo/spinning sensation, gait abnormalities, or tremors. ENT: No hearing loss, otalgia, otorrhea, rhinitis, rhinorrhea, hoarseness, or sore throat. CARDIOVASCULAR: Denies any exertional angina, dyspnea on exertion, orthopnea, paroxysmal nocturnal dyspnea, palpitations, life-threatening arrhythmias, claudication. PULMONARY: Denies any shortness of breath, cough, phlegm/sputum, hemoptysis, pleuritic chest pain. SLEEP: Denies morning headaches, daytime somnolence or napping. Denies difficulty falling asleep, staying asleep, waking from sleep. Denies knowledge of snoring. GASTROINTESTINAL: Denies any type of dysphagia to either liquids or solids. Denies nausea, vomiting, pyrosis, early satiety, abdominal pain, diarrhea, constipation, or changes in stool consistency or caliber. Denies coffee-ground emesis, hematemesis, hematochezia, or melanotic stools. GENITOURINARY: Denies frequency, urgency, nocturia, hematuria or incontinence (Storage/Irritative symptoms.) Low urinary stream, straining to void, urinary intermittency or hesitancy, splitting of the voiding stream, terminal dribbling. ENDOCRINOLOGIC: Denies polyuria, polydipsia, polyphagia or heat/cold intolerances. HEMATOLOGIC: Denies thrombophilia/previous clots, or coagulopathy/bleeding disorders. ONCOLOGIC: Denies personal history of malignancy. DERMATOLOGIC: Denies rashes or pruritus. PSYCHIATRIC: Denies any suicidal or homicidal ideation. Denies hallucinations. PAST MEDICAL HISTORY: [ diabetes, hypertension, hyperlipidemia and hypothyroidism,GERD , mild to moderate nonobstructive CAD ,active smoker (10 cigarette/day quits last week) and morbid obesity ] PAST SURGICAL HISTORY: [ Back surgery, bilateral total knee replacement, neck surgery, hysterectomy, x2] PAST SOCIAL HISTORY: [ Patient lives with . Patient admits to smoking 10 cigarettes per day for 30 beats last week ] FAMILY HISTORY: [ Hypertension, diabetes, stroke, Chronic obstructive pulmonary disease, cardiovascular disease, cancer and asthma ] Coded Allergies: adhesive tape (Unverified Allergy, Unknown, 03/19/23) hydrochlorothiazide (Unverified Allergy, Unknown, 10/04/22) lisinopril (Unverified Allergy, Unknown, 05/13/22) PHYSICAL EXAM GENERAL APPEARANCE: The patient is awake, alert, and oriented, in no acute cardiopulmonary distress. NEUROLOGICAL: Cranial nerves II-XII grossly intact. Motor is 5/5 in bilateral upper and lower extremities proximal to distal. No sensory deficits. HEENT: Face is symmetric. Pupils are equal and reactive. Extraocular movements are intact. NECK: Supple. No JVD. No thyromegaly. No submental, submandibular, pre- /postauricular, occipital or supraclavicular lymphadenopathy. CHEST: Normal chest expansion. No Telemetry. LUNGS: Absence of any rales, rhonchi or any wheezing. CARDIOVASCULAR: Regular. S1 and S2 normal. No appreciable rubs, murmurs or gallops. ABDOMEN: Soft, nontender, and nondistended. There is no rebound, voluntary guarding, or rigidity. : Deferred. No Camilo. EXTREMITIES: Non-edematous and not cyanotic. No clubbing. Good capillary refill. SKIN: No skin breakdown. Vital Sign (Last 24 Hours) 01/02/25 01/02/25 01/02/25 19:15 20:00 21:00 Temp 97.7 Pulse 90 Resp 22 B/P (MAP) 133/83 Pulse Ox 96 O2 Delivery Room Air O2 Flow Rate 0 FiO2 21 LABS: Laboratory: Test 01/02/25 06:51 Range/Units Whole Blood Glucose 84 70-110 MG/DL Current Medications Medications (Trade) Dose Ordered Sig/Kwaku Route PRN Reason Start Time Stop Time Status Last Admin Dose Admin Acetaminophen (TYLenol 325MG TAB) 650 mg Q4H PRN PO TEMPERATURE GREATER THAN 101.5 01/02/25 20:30 02/01/25 20:29 Acetaminophen (TYLenol 325MG TAB) 650 mg Q6H PRN PO MILD PAIN (1-3) 01/02/25 20:30 02/01/25 20:29 01/02/25 20:24 650 MG Aspirin (Aspirin 81mg Chew Tab) 81 mg DAILY PO 01/03/25 09:00 02/02/25 08:59 Clopidogrel Bisulfate (plaVIX 75MG) 75 mg DAILY PO 01/03/25 09:00 02/02/25 08:59 Dextrose (D50w) 50 ml AD PRN IV HYPOGLYCEMIA PROTOCOL 01/02/25 16:30 02/01/25 16:29 Fentanyl Citrate (FENTanyl CITRate PF 50 MCG/ 1 ML 2ML VIAL) 25 mcg ONCE IVP 01/02/25 18:00 01/02/25 22:00 01/02/25 17:56 25 MCG Glucagon (Glucagon 1mg Kit) 1 mg AD PRN IM HYPOGLYCEMIA PROTOCOL 01/02/25 16:30 02/01/25 16:29 Metoprolol Succinate (TopROL XL) 25 mg DAILY PO 01/03/25 09:00 02/02/25 08:59 Sodium Chloride 1,000 ml @ 150 mls/hr Q6H40M IV 01/02/25 16:30 01/02/25 20:29 DC 01/02/25 17:57 150 MLS/HR Tramadol HCl (UltRAM) 50 mg Q4H PRN PO PAIN GREATER THAN 4 01/02/25 18:00 01/07/25 17:59 DIAGNOSTICS / RADIOLOGY: [ ] ASSESSMENT: Coronary artery disease with cardiac stent x6 POA Hypertension POA Diabetes POA Hyperlipidemia POA Hypothyroidism POA Morbid obesity POA Acute kidney injury on chronic renal insufficiency POA Nicotine dependence POA PLAN: We will admit patient in PCCU We will start on heart healthy and consistent carb diet We will start NS at 75 mL/hour x1 bag We will start on famotidine 20 mg p.o. daily for GI prophylaxis We will replace electrolytes as needed per protocol We will start on insulin sliding scale AC & HS with hypoglycemia protocol We will add prn medication for fever,pain,cough , nausea and vomiting Home meds reconciled Counseled on smoking cessation We will follow cardiology recommendation patient is on dual antiplatelet therapyand on Statin and BB We will request labs in am Further orders to follow depending on above results Case discussed with attending physician and came up with above treatment and plan of care. ADVANCED CARE PLANNING 1. Which of the following were discussed? Hospice Care - No Therapeutic options - Yes Advance Directives - No Other discussions - 2. Discussed with who? Patient 3. Voluntary nature of this service was explained to the patient? Yes 4. Amount of time spent - ___24 min____ 5. Reviewed by Physician? (if this service was performed by NPP) Yes Patient seen and examined by me. Agree with note by ORGANIZATIONAL EFFECTIVENESS DIRECTOR SEE ADDITIONAL ORDERS PER CHART DISCUSSED WITH NURSING STAFF MABEL REYNA WEB METHODS DEVELOPER Jan 02, 2025 21:31
--- NOTE | 2025-01-02 21:58 | NUR ---
HOSPITALIST [facility] COMMITTEE MEMBER AT BEDSIDE FOR ADMISSION. PT ASKING FOR PAIN MEDICATION FOR BACK STATES SHE HAS HERNIATED DISCS ORDER FOR NORCO X 1 NOW RECEIVED.
[2025-01-02] MEDS ORDERED: PoTASSium chl 10% ELIXIR 20MEQ 20 MEQ/15 ML UDCUP PO PRN (22:00)
[2025-01-02] MEDS ORDERED: PoTASSium chloRIDE 20MEQ ER 20 MEQ ERTAB PO PRN (22:00)
--- NOTE | 2025-01-02 22:00 | NUR ---
TR BAND TR BAND REMOVED SITE CLEANSED WITH ALCOHOL AND TEGADERM APPLIED. PT REMINDED TO NOT PULL, PUSH, OR LIFT ANYTHING WITH RIGHT ARM. SHE WAS NOTED TRYING TO PULL SELF WITH RIGHT ARM WHEN TURNING AND WAS CORRECT AT BEDSIDE BOTH VOICED UNDERSTANDING.
[2025-01-02] MEDS: HYDROcodone/APAP 5/325 1 TAB TABLET PO ONE (22:02)
[2025-01-03] VITALS (8 sets, daily range): BP systolic 103–121; BP diastolic 46–79; PULSE 95–108; RESP 18–30; TEMP 98–98.2; O2SAT 97–99
[2025-01-03] MEDS: 0.9%NACL 1000ML 1,000 ML IV SCH (00:26)
[2025-01-03 03:50] LABS: IMMATURE GRANULOCYTE ABSOLUTE 0.03 K/uL (0-1); NUCLEATED RED BLOOD CELLS 0.0 % (0.0-0.19); PLATELET COUNT (AUTO) 191 K/uL (130-400); RED BLOOD CELL COUNT(AUTO) 4.61 MIL/uL (4.00-5.50); RED CELL DISTRIBUTION WIDTH 14.3 % (11.0-15.5); WHITE BLOOD COUNT (AUTO) 9.2 K/uL (4.8-10.8)
[2025-01-03 04:07] LABS: ASPARTATE AMINOTRANSFERASE 104.0 U/L (10-37); CREATININE 0.8 mg/dL (0.5-1.0); GLOMERULAR FILTR. RATE CALC 83.0 mL/min (>90); GLUCOSE,RANDOM 91.0 mg/dL (70-105); SODIUM SERUM 144.0 mmol/L (136-145); TOTAL PROTEIN, SERUM 6.1 g/dL (6.0-8.3); UREA NITROGEN, BLOOD 9.0 mg/dL (7-18)
[2025-01-03] MEDS: MAGNESIUM 2GM PREMIX 50ML 50 ML IV PRN (05:23)
[2025-01-03] MEDS ORDERED: ASPI-1005 PO (07:20)
[2025-01-03] MEDS ORDERED: CLOP-31 PO (07:20)
[2025-01-03] MEDS ORDERED: ATOR40TA69 PO (07:20)
[2025-01-03] MEDS ORDERED: METO25TA3 PO (07:20)
[2025-01-03] MEDS: ASPIRIN 81MG CHEW TAB PO SCH (08:53)
[2025-01-03] MEDS: EZETIMIBE 10 MG TAB PO SCH (08:54)
[2025-01-03] MEDS: FAMOTIDINE 20MG TAB PO SCH (08:54)
[2025-01-03] MEDS: VARENICLINE TARTRATE 1 MG PO SCH (09:00)
[2025-01-03] MEDS: VORTIOXETINE 20 MG PO SCH (09:00)
[2025-01-03] MEDS: VENLAFAXINE HCL 150 MG PO SCH (09:00)
--- NOTE | 2025-01-03 10:42 | DS ---
Discharge Summary Hospital Course Summary: This is a 64-year-old female with past medical history of diabetes, hypertension, hyperlipidemia and hypothyroidism,GERD , mild to moderate nonobstructive CAD ,active smoker (10 cigarette/day quits last week) and morbid obesity with gastric sleeve (5years ago ) who underwent a left Cardiac catheterization via right radial artery performed by Dr.James Contreras. Status post 4 stents to proximal to mid LAD and x1 stent to left Main into ostial LAD and to the ostial proximal left circumflex x 1. Patient was admitted for observation. 01/03/2025 patient is hemodynamically stable for discharge. Status post left heart catheterization with stents. Patient is recuperating well no chest pain, palpitation, shortness for breath. Renal function back to normal. As per field horticultural specialty grower's patient we will be on DAPT (aspirin 81 mg q.day/Plavix 75 mg daily) x6 months in addition high-intensity statin therapy and Toprol-XL. Patient to follow-up with Dr. Contreras one-week. All questions and concerns were addressed. Procedure(s): DATE OF PROCEDURE: Jan 02, 2025 CAREER TECHNICAL EDUCATION INSTRUCTOR: [ Aida contreras MD] PROCEDURE PERFORMED: Conscious sedation Ultrasound guided right radial artery access Selective left coronary artery angiogram Selective right coronary artery angiogram Left heart catheterization IVUS of the LAD and left main Status post IVUS guided PTCA/PCI of the proximal to mid LAD x4 (4.5 proximally, 3.5 mid segment and 2.75 in the mid to distal segment) Left main dissection status post successful IVUS guided PTCA/PCI of the left main into ostial LAD x1 (5 x 30 mm CHAU) Status post PTCA/PCI of the ostial proximal left circumflex (4.5 x 18 mm CHAU) TR band 13 christianne over right radial artery INDICATION: Abnormal coronary CTA DESCRIPTION OF PROCEDURE: After informed consent was obtained, the patient was prepped and draped in the usual sterile fashion. A 6 Turkmen arterial sheath was inserted in the right radial artery using ultrasound guidance with first pass wall puncture. The arterial sheath was aspirated and flushed. A 6 Turkmen JL 3.5 was then advanced to the ascending aorta over an exchange length J-tip guidewire, was aspirated and flushed, and was used for selective coronary angiograms in multiple obliquities. A JR-4 was advanced in a similar fashion to the ascending aorta over the J-tipped guidewire and was used for selective right coronary angiograms in multiple oblique views with findings as outlined below. The JR-4 catheter advanced into the LV and pressures were obtained with a pull-back across the aortic valve. Following review of the angiographic images decision was made to intervene on patient's critical LAD stenosis which was calcified with an aneurysmal proximal segment. We exchanged the diagnostic catheter for a six Turkmen XB three guide catheter was advanced over the wire and similar fascia and used to engage the left main coronary artery. [place] [address] units of IV heparin and loading doses of Plavix and falling therapeutic ACT we advanced a Prowater into the mid LAD under fluoroscopic guidance. We are met with significant resistance so we advanced a FineCross microcatheter over the wire to the mid LAD and we performed a limited distal tip injection revealing a significant mid LAD dissection. At this time we are able to traverse the Prowater into the true lumen of the distal LAD. At this point we began with PTCA using a 3 x 20 mm compliant balloon to nominal pressure serially within the mid proximal segments of the LAD to nominal pressures. We then proceeded with IVUS imaging of the LAD and left main confirming the dissection and significant calcified disease extending into the proximal LAD. We deployed a 2.75 by 22 mm diego Jasper drug-eluting stent within the mid LAD to nominal pressures. We then deployed a 3.5 x 15 mm diego drug-eluting stent within the mid LAD to nominal pressures in overlapping fashion. We post dilated the stents using a 3.5 by 20 mm noncompliant balloon to sub nominal pressures in the distal segment and nominal pressures in the mid segment. We then deployed a 4.5 by 18 mm diego Jasper drug-eluting stent in the proximal LAD to nominal pressures in overlapping fashion. We began noting significant contrast hang up within the left main and nonspecific ST-T wave changes. On further review we noted a significant diffuse left main dissection extending into the left circ and proximal LAD. At this time we used a 014 runthrough wire to wire the left circumflex and we attempted to perform the MARIEL and protrusion technique but we are met with significant resistance passing any balloons and wires within the six guide. We deployed a 4 x 18 mm diego Jasper drug-eluting stent within the ostial to prox circumflex to nominal pressures. We then pre-dilated the left main using a five by 30 mm compliant balloon to nominal pressures. We then deployed a 5 x 30 mm drug-eluting stent within the left main extending into the proximal LAD to nominal pressures. This was post dilated with a 5 x 15 mm non compliant balloon to 14 and 16 CHRISTIANNE respectively. Final angiogram revealed methodist of JUAN three flow with no dissections or perforations. At this time given excessive contrast use and radiation decision was made to terminate the procedure. All wires and catheters removed from the body and a A TR band was placed over right radial artery. FLUOROSCOPY TIME: 48.5 min LEFT HEART HEMODYNAMICS: LVEDP 12 mm Hg and no gradient Ao CORONARY ANGIOGRAM: LEFT MAIN: Patent and 0% stenosis. Gives rise to LCx and LAD. LEFT ANTERIOR DESCENDING: Large vessel giving rise to two Diagonal branches. T heavily and diffusely calcified with a 80 90% prox to mid focal lesion with an aneurysmal segment. And 70-80% diffuse mid to distal calcified stenosis. D1 and D2 are large, calcified and tortuous LEFT CIRCUMFLEX: Large and gives rise to two OM branches. Luminal irregularities. OM2 patent RIGHT CORONARY ARTERY: Large, dominant vessel giving rise to PDA and PL branches. Proximal aneurysmal segment with no significant disease. Luminal irregularities. PDA and PLB are patent HEMOSTASIS: TR band 12 christianne over right radial artery INTERVENTIONS: Status post IVUS guided PTCA/PCI of the proximal to mid LAD x4 (4.5 proximally, 3.5 mid segment and 2.75 in the mid to distal segment) COMPLICATIONS: Left main dissection status post successful IVUS guided PTCA/PCI of the left main into ostial LAD x1 (5 x 30 mm CHAU) Status post PTCA/PCI of the ostial proximal left circumflex (4.5 x 18 mm CHAU) FINDINGS: Normal coronary anatomy and severe calcified prox to mid LAD disease status post revascularization Case was complicated by left main dissection which was treated with PTCA/PCI of the left main and left circ ESTIMATED BLOOD LOSS: 5 cc RECOMMENDATIONS/INSTRUCTIONS: Aggressive risk factor modification. Patient required DAPT (aspirin 81 mg q.day/Plavix 75 mg daily) x6 months in addition high-intensity statin therapy and Toprol-XL Radial precautions and we will admit the patient to observation to monitor renal function Plan for discharge home tomorrow morning if no anginal symptoms and renal function was stable CONTRAST DELIVERED TO PATIENT (mL): 350cc AIDA Asencio MD, MD Assessment/Plan: Discharged dx's: Coronary artery disease with cardiac stent x6 POA Hypertension POA Diabetes POA Hyperlipidemia POA Hypothyroidism POA Morbid obesity POA Acute kidney injury on chronic renal insufficiency POA Nicotine dependence POA PLAN: ADMISSION DATE: 01/02/2025 DISCHARGE DATE: 01/03/2025 DISPOSITION: Home CONDITION: Stable MEDICAL INSURANCE CLERK(S): Cardiology's FOLLOW UP APPOINTMENT(S): [facility] Dr. Contreras one-week, PCP 2-3 days: DR Kayley Dodd MD PROCEDURES: Left heart catheterization see attachment IMAGING (S) report attached to summary : MICROBIOLOGY: report attached to summary; none ACTIVITY: Ad joshua HOME MEDICATIONS remain the same CHANGES ON HOME MEDICATIONS none NEW MEDICATIONS as per field horticultural specialty grower's patient will need six months of [id number] mg p.o. daily, [id number] mg p.o. daily and high dose atorvastatin daily. TEACHING: Side effects and adverse reactions of medication Emergency instructions: The patient was instructed to present to the nearest Emergency Department or call 911 should their symptoms return or worsen. Home Medications: Reported Medications Lorazepam (Ativan) 1 Mg Tablet, 1 MG PO TID PRN for ANXIETY/AGITATION, TAB 12/31/24 [trintellix] No Conflict Check, 20 MG PO AM 12/31/24 Pregabalin (Pregabalin) 150 Mg Capsule, 150 MG PO BID, CAP 12/31/24 Metoprolol Succinate (Metoprolol Succinate) 25 Mg Tab.er.24h, 25 MG PO AM, TAB 12/31/24 Ezetimibe (Ezetimibe) 10 Mg Tablet, 10 MG PO AM, TAB 12/31/24 Venlafaxine HCl (Venlafaxine HCl ER) 150 Mg Tab.er.24, 150 MG PO BID 12/31/24 Vibegron (Gemtesa) 75 Mg Tablet, 75 MG PO HS, TAB 12/31/24 Levothyroxine Sodium (Synthroid 150 Mcg Tab) 150 Mcg Tab, 150 MCG PO AM, TAB 12/31/24 Linaclotide (Linzess) 145 Mcg Capsule, 145 MCG PO HS, CAP 12/31/24 Tirzepatide (Mounjaro) 10 Mg/0.5 Ml Pen.injctr, 10 MG SQ sunday12/31/24 Varenicline Tartrate (Varenicline Tartrate) 1 Mg Tablet, 1 MG PO BID, TAB 12/31/24 Hydrocodone/Acetaminophen (Hydrocodon-Acetaminoph 7.5-325) 1 Each Tablet, 1 EACH PO TIDP PRN for PAIN, TAB 10/04/22 Zolpidem Tartrate (Ambien) 10 Mg Tablet, 10 MG PO HS, TAB 10/04/22 Valsartan (Valsartan) 160 Mg Tablet, 160 MG PO HS, TAB 10/04/22 Omeprazole (Omeprazole) 40 Mg Capsule.dr, 40 MG PO AM, CAP 10/04/22 Discontinued Reported Medications Semaglutide (Ozempic) 1 Mg/0.75 Ml Pen.injctr, 1 MG SQ QWEEK 11/24/22 Aspirin (Aspirin) 81 Mg Tab.chew, 81 MG PO HS, TAB.CHEW 11/24/22 Metoprolol Succinate (Metoprolol Succinate) 25 Mg Tab.er.24h, 25 MG PO HS, TAB METOPROLOL SUCCINATE INCREASE TO 50 MG BY MOUTH AT NIGHT 11/24/22 Atorvastatin Calcium (Atorvastatin Calcium) 40 Mg Tablet, 40 MG PO HS, TAB 11/24/22 Fluoxetine HCl (Fluoxetine HCl) 40 Mg Capsule, 40 MG PO DAILY, CAP 11/24/22 Levothyroxine Sodium (Levothyroxine) 125 Mcg Capsule, 125 MCG PO AM, CAP 10/04/22 Meclizine HCl (Meclizine HCl) 25 Mg Tablet, 25 MG PO Q12H PRN for DIZZY, TAB 10/04/22 Pregabalin (Pregabalin) 75 Mg Capsule, 75 MG PO BID, CAP 10/04/22 Discontinued Scripts Cephalexin (Cephalexin) 500 Mg Tablet, 1 TAB PO BID for 7 Days, #14 TAB 0 Refills Prov:MAGED CRUZ 11/27/24 Ibuprofen (Ibuprofen) 600 Mg Tablet, 600 MG PO Q6H PRN for PAIN, #20 TAB Prov:BERENICE COURTNEY MD 05/24/23 New Medications: Atorvastatin Calcium (Lipitor) 80 Mg Tablet 1 TAB PO DAILY for 30 Days, #30 TAB 0 Refills Aspirin (Aspirin 81MG Chew Tab) 81 Mg Tab.chew 81 MG PO DAILY for 30 Days, #30 TAB.CHEW 3 Refills Clopidogrel Bisulfate (Plavix) 75 Mg Tablet 75 MG PO DAILY for 30 Days, #30 TAB 3 Refills Metoprolol Succinate (Toprol Xl) 25 Mg Tab.er.24h 25 MG PO DAILY for 30 Days, #30 TAB Continued Medications: Ezetimibe (Ezetimibe) 10 Mg Tablet 10 MG PO AM, TAB Hydrocodone/Acetaminophen (Hydrocodon-Acetaminoph 7.5-325) 1 Each Tablet 1 EACH PO TIDP PRN for PAIN, TAB Levothyroxine Sodium (Synthroid 150 Mcg Tab) 150 Mcg Tab 150 MCG PO AM, TAB Linaclotide (Linzess) 145 Mcg Capsule 145 MCG PO HS, CAP Lorazepam (Ativan) 1 Mg Tablet 1 MG PO TID PRN for ANXIETY/AGITATION, TAB Metoprolol Succinate (Metoprolol Succinate) 25 Mg Tab.er.24h 25 MG PO AM, TAB Omeprazole (Omeprazole) 40 Mg Capsule.dr 40 MG PO AM, CAP Pregabalin (Pregabalin) 150 Mg Capsule 150 MG PO BID, CAP Tirzepatide (Mounjaro) 10 Mg/0.5 Ml Pen.injctr 10 MG SQ sunday [trintellix] () 20 MG PO AM Valsartan (Valsartan) 160 Mg Tablet 160 MG PO HS, TAB Varenicline Tartrate (Varenicline Tartrate) 1 Mg Tablet 1 MG PO BID, TAB Venlafaxine HCl (Venlafaxine HCl ER) 150 Mg Tab.er.24 150 MG PO BID Vibegron (Gemtesa) 75 Mg Tablet 75 MG PO HS, TAB Zolpidem Tartrate (Ambien) 10 Mg Tablet 10 MG PO HS, TAB Time spent arranging discharge: 31-60 minutes ATTESTATION BY PHYSICIAN I have seen and examined the patient. I reviewed the documentation, medical decision making, and treatment plan as noted by the mid-level provider above. I agree with the findings and plan of care. JOSEFINA TURNER MD, ELIZABETH NP Jan 03, 2025 10:42
--- NOTE | 2025-01-03 15:19 | PN ---
[facility] CARDIOLOGY PROGRESS NOTE Date Patient Seen: Jan 03, 2025 Time of Visit: 15:15 Interval History: [No acute events overnight., the patient is Status post IVUS guided PTCA/PCI of the proximal to mid LAD x4 (4.5 proximally, 3.5 mid segment and 2.75 in the mid to distal segment), complicated by Left main dissection status post successful IVUS guided PTCA/PCI of the left main into ostial LAD x1 (5 x 30 mm CHAU) and Status post PTCA/PCI of the ostial proximal left circumflex (4.5 x 18 mm CHAU). The patient currently denies any chest pain, palpitations, dyspnea or any other anginal equivalents. The patient was hemodynamically stable. Repeat ECG at this moment shows anterolateral T-wave inversions ] Physical Examination: GENERAL: [No acute distress.] HEAD: [Normal with no signs of head trauma.] EYES: [PERRLA, EOMI, conjunctiva and sclera normal.] ENT: [Hearing grossly intact, normal oropharynx.] NECK: [Supple without JVD. There is no tenderness, lymphadenopathy, or masses. No thyromegaly. Normal carotid upstrokes without bruits.] LUNGS: [Clear breath sounds bilaterally. No wheezes, or rhonchi.] HEART: [Normal rate and rhythm. Normal S1 and S2 without mumurs, gallop or rub.] VASC: [Peripheral pulses +2 bilaterally.] ABD: [Bowel sounds normal, soft, nontender, no masses, no organomegaly. No a udible bruits.] : [Not examined] LYMPH: [No lymphadenopathy noted.] EXT: [No clubbing, cyanosis or edema.] SKIN: [No rashes or lesions noted.] NEURO: [Awake, alert, and oriented x3. No focal sensory or strength deficits noted.] Laboratory: [ ] Hematology Labs: Test 01/03/25 03:17 Range/Units White Blood Count 9.2 4.8-10.8 K/uL Red Blood Count 4.61 4.00-5.50 MIL/uL Hemoglobin 13.9 12.0-16.0 g/dL Hematocrit 42.2 36-48 % Mean Corpuscular Volume 91.5 79-99 fL Mean Corpuscular Hemoglobin 30.2 27.0-33.0 pg Mean Corpuscular Hemoglobin Concent 32.9 32.0-36.0 g/dL Red Cell Distribution Width 14.3 11.0-15.5 % Platelet Count 191 130-400 K/uL Mean Platelet Volume 12.3 H 7.5-10.5 fL Immature Granulocyte % (Auto) 0.3 0-1 % Neutrophils (%) (Auto) 72.3 40.0-77.0 % Lymphocytes (%) (Auto) 16.3 L 21.0-51.0 % Monocytes (%) (Auto) 9.4 3.0-13.0 % Eosinophils (%) (Auto) 1.4 0.0-8.0 % Basophils (%) (Auto) 0.3 0.0-5.0 % Neutrophils # (Auto) 6.7 1.8-7.7 K/uL Lymphocytes # (Auto) 1.5 1.0-4.8 K/uL Monocytes # (Auto) 0.9 0.1-1.0 K/uL Eosinophils # (Auto) 0.13 0.00-0.70 K/uL Basophils # (Auto) 0.03 0.00-0.20 K/uL Absolute Immature Granulocyte (auto 0.03 0-1 K/uL Nucleated Red Blood Cells 0.0 0.0-0.19 % Chemistry Labs: Test 01/03/25 11:09 01/03/25 03:17 Range/Units Whole Blood Glucose 110 70-110 MG/DL Sodium Level 144 136-145 mmol/L Potassium Level 4.1 3.5-5.1 mmol/L Chloride Level 110 101-111 mmol/L Carbon Dioxide Level 25 21-32 mmol/L Blood Urea Nitrogen 9 7-18 mg/dL Creatinine 0.8 0.5-1.0 mg/dL Glomerular Filtration Rate Calc 83 >90 mL/min Random Glucose 91 70-105 mg/dL Total Calcium 8.4 L 8.5-10.1 mg/dL Magnesium Level 1.80 1.80-2.40 mg/dL Total Bilirubin 0.6 0.2-1.0 mg/dL Aspartate Amino Transf (AST/SGOT) 104 H 10-37 U/L Alanine Aminotransferase (ALT/SGPT) 17 12-78 U/L Alkaline Phosphatase 82 50-136 U/L Total Protein 6.1 6.0-8.3 g/dL Albumin 2.9 L 3.5-5.0 g/dL Diagnostics / Radiology: [Copy/Paste Echos/Imaging Report here] Impression and Plan: [Coronary artery disease with cardiac stent x6 POA Hypertension POA Diabetes POA Hyperlipidemia POA Hypothyroidism POA Morbid obesity POA Acute kidney injury on chronic renal insufficiency POA Nicotine dependence POA # CAD The patient presented to the hospital for an elective coronary angiogram The patient is Status post IVUS guided PTCA/PCI of the proximal to mid LAD x4 (4.5 proximally, 3.5 mid segment and 2.75 in the mid to distal segment) Complicated by Left main dissection status post successful IVUS guided PTCA/PCI of the left main into ostial LAD x1 (5 x 30 mm CHAU) Status post PTCA/PCI of the ostial proximal left circumflex (4.5 x 18 mm CHAU). The patient currently denies any chest pain, palpitations, dyspnea or any other anginal equivalents. The patient was hemodynamically stable. Repeat ECG at this moment shows anterolateral T-wave inversions Aggressive risk factor modification. Patient required DAPT (aspirin 81 mg q.day/Plavix 75 mg daily) x6 months in addition high-intensity statin therapy and Toprol-XL Thank you for this consult cardiology will sign off at this time the patient will follow up with clinic 1-2 weeks after discharge Placido contreras MD ] ATTESTATION BY PHYSICIAN I have seen and examined the patient, reviewed the above documentation, participated in medical decision making, made necessary modifications, and agree with the treatment plan as documented by my mid-level provider above. MD ESTEFANI Almeida JAMES R MD Jan 03, 2025 15:19
--- NOTE | 2025-01-03 15:34 | NUR ---
DISCHARGE D/C INSTRUCTION GIVEN TO PT AND BOTH VERBALIZED UNDERSTANDING. IV AND TELE PACK REMOVED. IV CATH TIP INTACT. PT WAS ESCORTED TO PRIVATE CAR. PT WAS IN STABLE CONDITION.
--- NOTE | 2025-01-03 17:20 | EKG ---
[facility] Test Date: 2025-01-03 Test Time: 14:41:30 Pat Name: ROSE BEVERLY Department: [facility] Room: 228 1 Gender: F Intellectual Property Paralegal: JUDITH : 1960 Requested By: AIDA JARA Order Number: [id number] Reading MD: Clara Jimenez Measurements Intervals [place] Rate: 94 P: 48 [place]: 168 QRS: -35 QRSD: 80 T: 107 QT: 414 QTc: 517 Interpretive Statements Normal sinus rhythm Left axis deviation Pulmonary disease pattern T wave abnormality, consider anterolateral ischemia Prolonged QT Compared to ECG 01/03/2025 05:28:01 Left-axis deviation now present T-wave abnormality now present Possible ischemia now present Prolonged QT interval now present Sinus tachycardia no longer present Myocardial infarct finding no longer present Electronically Signed On 01-05-2025 15:28:08 CDT by Clara Jimenez Please click the below link to view image of tracing.
--- NOTE | 2025-01-03 17:20 | EKG ---
[facility] Test Date: 2025-01-03 Test Time: 05:28:01 Pat Name: ROSE BEVERLY Department: 2D Room: 228 1 Gender: F Director Of Community Life: rosalind : 1960 Requested By: AIDA JARA Order Number: [id number] Reading MD: Clara Jimenez Measurements Intervals [place] Rate: 106 P: 52 [place]: 174 QRS: -32 QRSD: 82 T: 6 QT: 347 QTc: 462 Interpretive Statements Sinus tachycardia Anterior infarct, age indeterminate Compared to ECG 12/31/2024 10:03:24 Myocardial infarct finding now present Sinus rhythm no longer present Electronically Signed On 01-05-2025 15:26:50 CDT by Clara Jimenez Please click the below link to view image of tracing.
[2025-01-03] MEDS ORDERED: VIBEGRON 75 MG PO SCH (21:00)
== END 2025-01-03 16:00 | disposition home or self-care (01) ==
LOC: DAH 06:42 → DAHIP 06:43 → DAH 06:43 → 2BH 16:54 → 2DH 01-03 06:57
PROVIDERS: ADMIT Hospitalist; ATTEND Hospitalist
DX: I25.10 Atherosclerotic heart disease of native coronary artery without angina pectoris (principal); I12.9 Hypertensive chronic kidney disease with stage 1 through stage 4 chronic kidney disease, or unspecified chronic kidney disease; E11.22 Type 2 diabetes mellitus with diabetic chronic kidney disease; N18.9 Chronic kidney disease, unspecified; E78.5 Hyperlipidemia, unspecified; E66.01 Morbid (severe) obesity due to excess calories; N17.9 Acute kidney failure, unspecified; E03.9 Hypothyroidism, unspecified; K21.9 Gastro-esophageal reflux disease without esophagitis; G89.29 Other chronic pain; F17.210 Nicotine dependence, cigarettes, uncomplicated; Z88.5 Allergy status to narcotic agent; Z88.8 Allergy status to other drugs, medicaments and biological substances; Z90.710 Acquired absence of both cervix and uterus; Z79.899 Other long term (current) drug therapy; Z96.653 Presence of artificial knee joint, bilateral; Z68.38 Body mass index [BMI] 38.0-38.9, adult
CPT/HCPCS: 80048; 83880; 85025 ×2; 85610; 85730; 81003; 36415 ×2; 71045; 93005 ×3; 92978; 92979; 93458; 99156; 99157 ×5; 96375; 85347 ×4; 82948 ×2; 96365; 83735; 80053; C1769 ×6; C1725 ×5; C1874 ×6; C1887 ×3; C1894; A4649; C1753; Q9965 ×4; G0378 ×24; J1200 ×3; J3010 ×3; J3490 ×4; J2003; J1644 ×4; J2250 ×4; J2405; J2270; Q9967 ×3; A4215; A4223 ×3; A4222; A4221; A4663; A4216; A4606; C9600 ×3; J3475; J0169; J0461; J2371

== ENCOUNTER → 2025-03-03 | Outpatient (CLI) | payer MEDICARE, MEDICAID ==
[~2025-03-03] MED LIST changes: +ASPI-1005 PO; +ATOR40TA69 PO; +CLOP-31 PO; -EZET10TA48 PO; +EZET10TA80 PO; +METO25TA3 PO
--- NOTE | 2025-03-03 19:29 | HMCIMG ---
EXAM: US Abdomen complete CLINICAL HISTORY: Upper abdominal pain, unspecified. TECHNIQUE: Real-time ultrasound of the abdomen was performed with grayscale and color Doppler imaging as appropriate. COMPARISON: Ultrasound 10/19/2023, CT 11/27/2022. FINDINGS: LIVER: Liver measures 16 cm in length. Mild hepatomegaly with craniocaudal measurement of the right lobe up to 13.7 cm. Parenchymal echotexture appears within normal limits. No focal hepatic lesion identified. No intrahepatic biliary dilatation. GALLBLADDER: Gallbladder wall measures 2 mm (normal). Multiple mobile stones noted within the gallbladder lumen. No pericholecystic fluid. No sonographic Knight???s sign reported. Cholelithiasis. No sonographic evidence of acute cholecystitis. COMMON BILE DUCT: Measures 3 mm in diameter, within normal limits. PANCREAS: Appears within normal limits. KIDNEYS: Right kidney measures 9.3 x 4.1 x 4.6 cm. Normal cortical thickness and corticomedullary differentiation preserved. No hydronephrosis or nephrolithiasis. Left kidney measures 9.3 x 5.5 x 4.4 cm. Normal cortical thickness and corticomedullary differentiation preserved. No hydronephrosis or nephrolithiasis. SPLEEN: Measures 10 x 3.5 x 3.5 cm (within normal limits). Homogeneous echotexture. AORTA: Within normal limits. Proximal aortic diameter 2.5 cm, mid aortic diameter 1.9 cm, distal aortic diameter 1.5 cm. IVC: Within normal limits. IMPRESSION: 1. Cholelithiasis. No sonographic evidence of acute cholecystitis. 2. Mild hepatomegaly (liver 16 cm, right lobe craniocaudal 13.7 cm). No focal hepatic lesion identified. /[place]
== END | disposition home or self-care (01) ==
LOC: RAH 08:13
PROVIDERS: ATTEND Internal Medicine
DX: K80.20 Calculus of gallbladder without cholecystitis without obstruction (principal); R16.0 Hepatomegaly, not elsewhere classified; R10.10 Upper abdominal pain, unspecified
CPT/HCPCS: 76700

== ENCOUNTER → 2025-04-01 | Outpatient (CLI) | payer MEDICARE, MEDICAID ==
--- NOTE | 2025-04-01 16:42 | HMCIMG ---
Examination Hepatobiliary study History R10.10 Upper Abdominal Pain (Hx) / R10.10 Upper Abdominal Pain, Static Images (DICOM Hx) (DICOM Hx) Technique 0 mCi Tc-99m mebrofenin were administered intravenously followed by acquisition of planar images of the abdomen. Findings Following administration of radiotracer, there is prompt appearance of normal hepatic contours, followed by appearance of activity in unremarkable appearing bile ducts. There is prompt filling of the gallbladder. The study is negative for acute cholecystitis. IMPRESSION: Negative HIDA study. No evidence of cholecystitis. /[place]
== END | disposition home or self-care (01) ==
LOC: RAH 07:20
PROVIDERS: ATTEND Internal Medicine
DX: R10.10 Upper abdominal pain, unspecified (principal)
CPT/HCPCS: 78226; A9537

== ENCOUNTER 2025-05-06 13:46 | Emergency (ER) | payer MEDICARE, MEDICAID ==
[~2025-05-06] VITALS: Ht 160 cm; Wt 96.6 kg
--- NOTE | 2025-05-06 13:58 | ERN ---
ED Note History of Present Illness Stated Complaint: HEADACHES Chief Complaint: Other Problems Time Seen by MD: 13:51 Dictation: SAY 64-YEAR-OLD FEMALE COMING IN TODAY WITH COMPLAINTS OF RIGHT UPPER QUADRANT PAIN TENDERNESS THAT IS COLICKY FOR THE LAST MONTH. NO NAUSEA VOMITING NO BACK PAIN. NO CHEST PAIN SHE STATES SHE HAS BEEN SEEING DR. JARRETT, TEAM COORDINATOR WHO ORDERED AN ULTRASOUND LAST MONTH AND TOLD HER SHE HAD GALLSTONES. HE DID NOT REFER HER TO A GENERAL SURGEON, JUST TOLD HER IF THE PAIN GOT WORSE TO GO TO THE EMERGENCY ROOM. PATIENT ALSO STATES SHE HAS INTERMITTENT BILATERAL OCCIPITAL HEADACHES THAT RADIATE TO THE TEMPORAL AREA BILATERALLY. SHE STATES SHE HAS HAD THESE FOR SEVERAL MONTHS. SHE HAS NEVER HAD ABLE TO TELL HER DOCTOR BECAUSE EVERY TIME S HE GOES IN HE CHANGES THE SUBACUTE TALKED ABOUT OTHER THINGS. Allergies: Coded Allergies: adhesive tape (Unverified Allergy, Unknown, 03/19/23) hydrochlorothiazide (Unverified Allergy, Unknown, 10/04/22) lisinopril (Unverified Allergy, Unknown, 05/13/22) Home Meds Active Scripts Atorvastatin Calcium (LIPITOR) 80 Mg Tablet, 1 TAB PO DAILY for 30 Days, #30 TAB 0 [facility] 01/03/25 Metoprolol Succinate (Toprol Xl) 25 Mg Tab.er.24h, 25 MG PO DAILY for 30 Days, #30 TAB Prov:[facility] 01/03/25 Clopidogrel Bisulfate (Plavix) 75 Mg Tablet, 75 MG PO DAILY for 30 Days, #30 TAB 3 Refills Prov:[facility] 01/03/25 Aspirin (ASPIRIN 81MG CHEW TAB) 81 Mg Tab.chew, 81 MG PO DAILY for 30 Days, #30 TAB.CHEW 3 Refills Prov:[facility]E [facility] 01/03/25 Reported Medications Lorazepam (Ativan) 1 Mg Tablet, 1 MG PO TID PRN for ANXIETY/AGITATION, TAB 12/31/24 [trintellix] No Conflict Check, 20 MG PO AM 12/31/24 Pregabalin (Pregabalin) 150 Mg Capsule, 150 MG PO BID, CAP 12/31/24 Metoprolol Succinate (Metoprolol Succinate) 25 Mg Tab.er.24h, 25 MG PO AM, TAB 12/31/24 Ezetimibe (Ezetimibe) 10 Mg Tablet, 10 MG PO AM, TAB 12/31/24 Venlafaxine HCl (Venlafaxine HCl ER) 150 Mg Tab.er.24, 150 MG PO BID 12/31/24 Vibegron (Gemtesa) 75 Mg Tablet, 75 MG PO HS, TAB 12/31/24 Levothyroxine Sodium (Synthroid 150 Mcg Tab) 150 Mcg Tab, 150 MCG PO AM, TAB 12/31/24 Linaclotide (Linzess) 145 Mcg Capsule, 145 MCG PO HS, CAP 12/31/24 Tirzepatide (Mounjaro) 10 Mg/0.5 Ml Pen.injctr, 10 MG SQ sunday12/31/24 Varenicline Tartrate (Varenicline Tartrate) 1 Mg Tablet, 1 MG PO BID, TAB 12/31/24 Hydrocodone/Acetaminophen (Hydrocodon-Acetaminoph 7.5-325) 1 Each Tablet, 1 EACH PO TIDP PRN for PAIN, TAB 10/04/22 Zolpidem Tartrate (Ambien) 10 Mg Tablet, 10 MG PO HS, TAB 10/04/22 Valsartan (Valsartan) 160 Mg Tablet, 160 MG PO HS, TAB 10/04/22 Omeprazole (Omeprazole) 40 Mg Capsule.dr, 40 MG PO AM, CAP 10/04/22 Past Medical History Past Medical History: Diabetes-Type II, Hypertension, Other Additional Past Medical Hx: LOWER DISC HERNIATION Surgical History: Hysterectomy, Other, Surgical History Other: BILATERAL TOTAL KNEE REPLACEMENTS Family History: HTN Social History: Negative, Lives with family History: Not Applicable RN Note Reviewed/Agreed w/PFSH: Yes Review of System Dictation CONSTITUTIONAL: NEGATIVE EXCEPT FOR HPI HEAD/FACE: NEGATIVE EXCEPT FOR HPI EENT: NEGATIVE EXCEPT FOR HPI RESPIRATORY: NEGATIVE EXCEPT FOR HPI GASTROINTESTINAL/ABDOMINAL: NEGATIVE EXCEPT FOR HPI RIGHT UPPER QUADRANT PAIN COLICKY, MORE THAN A MONTH GENITOURINARY: NEGATIVE EXCEPT FOR HPI MUSCULOSKELETAL: NEGATIVE EXCEPT FOR HPI INTEGUMENTARY: NEGATIVE EXCEPT FOR HPI NEUROLOGICAL/PSYCH: NEGATIVE EXCEPT FOR HPI HEMATOLOGIC/LYMPHATIC: NEGATIVE EXCEPT FOR HPI ALL SYSTEMS NEGATIVE, EXCEPT NOTED ABOVE. 13 POINT REVIEW OF SYSTEMS ASSESSED AND ALL NEGATIVE EXCEPT FOR ABOVE. Initial Vital Sign VS Vital Signs Date Time Temp Pulse Resp B/P (MAP) Pulse Ox O2 Delivery O2 Flow Rate FiO2 05/06/25 14:29 98.1 74 16 136/90 99 Room Air 0 Physical Exam Dictation VITAL SIGNS REVIEWED GENERAL APPEARANCE: ALERT, ORIENTED X 3, MILD ACUTE DISTRESS, WELL DEVELOPED, NOURISHED. OBESE, STATES SHE ATE SOME STRIPS OF STEAK1 HOUR PRIOR TO ARRIVAL. HEAD AND FACE: NON-TRAUMATIC. EYES: PERRL, PINK CONJUNCTIVAS, EYELID NO TRAUMA, ANTERIOR CHAMBER WITH ARCUS SENILIS. EARS: PINNAS INTACT AND NO SIGNS OF TRAUMA OR ERYTHEMA EAR CANALS CLEAR AND NO DISCHARGE TM NO ERYTHEMA NOSE: NO DISCHARGE, NO BLEEDING. OROPHARYNX: MOUTH NORMAL, TONGUE PINK, PHARYNX CLEAR,NO ERYTHEMA, TONSILS NO EXUDATES, NO ABSCESSES NOTED, MUCOUS MEMBRANE MOIST NECK: SUPPLE, NON-TENDER, NO THYROMEGALY, NO MASSES, NO JVD, NO BRUITS BREAST:DEFERRED CHEST:NO TENDERNESS, NO CREPITUS, NO PARADOXICAL MOVEMENT, NO RETRACTIONS LUNGS:CLEAR, WELL-VENTILATED, SYMMETRIC, NO RALES, NO WHEEZING, NO RHONCHI, NO STRIDOR, GOOD BREATH SOUNDS BILATERALLY HEART: REGULAR RATE, REGULAR RHYTHM, NO MURMUR, NO GALLOPS VASCULAR: NO PERIPHERAL EDEMA, ABDOMEN: SOFT, POSITIVE BOWEL SOUNDS, NONDISTENDED, NO GUARDING, MILD RIGHT UPPER QUADRANT TENDERNESS., NO REBOUND, NO MASSES NO HEPATOMEGALY, NO SPLENOMEGALY, NO YOUNG'S SIGN, NO HERNIAS. RECTAL: DEFERRED GENITAL: DEFERRED NEUROLOGICAL: NORMAL SPEECH, MOTOR FUNCTION INTACT, SENSORY FUNCTION INTACT MUSCULOSKELETAL: NECK NONTENDER, FULL RANGE OF MOTION, BACK NONTENDER, FULL RANGE OF MOTION, EXTREMITIES: NONTENDER, FULL RANGE OF MOTION SKIN: COLOR PINK, DRY, NO TURGOR, NO RASH, NO LACERATIONS, NO ABRASIONS, NO CONTUSIONS. LYMPHATIC: DEFERRED Results (Laboratory/Radiology) Laboratory/Radiology Laboratory Tests Test 05/06/25 14:20 White Blood Count 9.5 K/uL (4.8-10.8) Red Blood Count 4.75 MIL/uL (4.00-5.50) Hemoglobin 13.9 g/dL (12.0-16.0) Hematocrit 43.6 % (36-48) Mean Corpuscular Volume 91.8 fL (79-99) Mean Corpuscular Hemoglobin 29.3 pg (27.0-33.0) Mean Corpuscular Hemoglobin Concent 31.9 g/dL (32.0-36.0) L Red Cell Distribution Width 15.3 % (11.0-15.5) Platelet Count 269 K/uL (130-400) Mean Platelet Volume 11.0 fL (7.5-10.5) H Immature Granulocyte % (Auto) 0.6 % (0-1) Neutrophils (%) (Auto) 82.5 % (40.0-77.0) H Lymphocytes (%) (Auto) 9.9 % (21.0-51.0) L Monocytes (%) (Auto) 6.2 % (3.0-13.0) Eosinophils (%) (Auto) 0.6 % (0.0-8.0) Basophils (%) (Auto) 0.2 % (0.0-5.0) Neutrophils # (Auto) 7.8 K/uL (1.8-7.7) H Lymphocytes # (Auto) 0.9 K/uL (1.0-4.8) L Monocytes # (Auto) 0.6 K/uL (0.1-1.0) Eosinophils # (Auto) 0.06 K/uL (0.00-0.70) Basophils # (Auto) 0.02 K/uL (0.00-0.20) Absolute Immature Granulocyte (auto 0.06 K/uL (0-1) Nucleated Red Blood Cells 0.0 % (0.0-0.19) White Cell Morphology Comment See comments Sodium Level 140 mmol/L (136-145) Potassium Level 4.4 mmol/L (3.5-5.1) Chloride Level 107 mmol/L (101-111) Carbon Dioxide Level 26 mmol/L (21-32) Blood Urea Nitrogen 19 mg/dL (7-18) H Creatinine 1.0 mg/dL (0.5-1.0) Glomerular Filtration Rate Calc 63 mL/min (>90) Random Glucose 87 mg/dL (70-105) Total Calcium 8.2 mg/dL (8.5-10.1) L Troponin I High Sensitivity 23 ng/L (4-50) Lipase 43 U/L (16-77) 1435/GALLBLADDER ULTRASOUND SHOWS MULTIPLE GA GALLBLADDER WALL IS3 MM COMMON BILE DUCT 3MM NO PERICHOLECYSTIC FLUID Labs Reviewed?: Yes EKG Comment: FOURTEEN 15/EKG SINUS RHYTHM/HEART RATE 75/AXIS NORMAL NONSPECIFIC CHANGES ANTEROLATERAL LEADS ED Course ED Course Orders Procedure Category Date Status Time Cbc With Differential LAB 05/06/25 Complete 13:55 Troponin I High LAB 05/06/25 Complete Sensitivity 13:55 Urinalysis Profile LAB 05/06/25 Logged 13:55 Us Abdominal Ruq\Ltd US 05/06/25 Resulted 13:55 12 Lead Ekg Tracing- EKG 05/06/25 Complete Technical 13:55 0.9%Nacl 1000ml (Ns PHA 05/06/25 Complete 1000ml) 14:00 Ketorolac PHA 05/06/25 Complete Tromethamine 30mg/Ml 14:00 Lipase LAB 05/06/25 Complete 13:55 Basic Metabolic Panel LAB 05/06/25 Complete 13:55 Current Medications Medications (Trade) Dose Ordered Sig/Kwaku Route PRN Reason Start Time Stop Time Status Last Admin Dose Admin Ketorolac Tromethamine (toRADol) 30 mg ONCE ONCE IVP 05/06/25 14:00 05/06/25 14:03 DC Sodium Chloride 1,000 ml @ 0 mls/hr ONCE ONCE IV 05/06/25 14:00 05/06/25 14:01 DC Vital Signs Date Time Temp Pulse Resp B/P (MAP) Pulse Ox O2 Delivery O2 Flow Rate FiO2 05/06/25 14:29 98.1 74 16 136/90 99 Room Air 0 1535/PATIENT STATES SHE STILL HAS A OCCIPITAL HEADACHE HOWEVER SHE IS NEUROLOGICALLY INTACT. SHE WILL BE DISCHARGED HOME WITH TENSION HEADACHE AND CHOLELITHIASIS. REFERREDTUNDE GENERAL SURGEON HEART Score Response (Comments) Value EKG: Repolarization changes 1 Age: 45-65yrs (+1) 1 Risk Factors: 1-2 risk factors (+1) 1 Initial Troponin: Normal limit (0) 0 Total 3 Medical Decision Making MDM MDM: DIFFERENTIAL DIAGNOSIS: ACS/AMI/CHOLELITHIASIS/CHOLEDOCHOLITHIASIS/BILIARY COLIC/ELECTROLYTE IMBALANCE/DEHYDRATION/TENSION HEADACHE RATIONALE: TESTS CONSIDERED AND ORDERED SECONDARY TO SHARED DECISION MAKING INCLUDE: LABS/RADIOLOGY PREVIOUS OUTSIDE RECORDS REVIEWED: OLD ER VISITS. RISK OF COMPLICATION AND/OR MORBIDITY OR MORTALITY OF PATIENT MANAGEMENT: NONE MEDICATIONS-PER MEDICATION RECONCILIATION NEED FOR HOSPITALIZATION: PATIENT DOES NOT MEET CRITERIA FOR HOSPITALIZATION. NONE NEED FOR EMERGENCY MAJOR/MINOR SURGERY: NO THERE ARE NO SOCIAL CONCERNS WITH THIS PATIENT. PRESCRIPTION DRUG MANAGEMENT FIORICET/BENTYL PRESCRIPTIONS WILL INCLUDE SYMPTOMATIC CARE PATIENT'S PRIOR EXTERNAL MEDICAL RECORDS FROM OTHER ER VISITS WERE REVIEWED BY ME INDICATED. PRIOR TESTING AND RESULTS FROM PREVIOUS VISITS WERE REVIEWED. PRIOR TESTS WERE TAKEN INTO ACCOUNT WITH MEDICAL DECISION MAKING AND RESOURCE UTILIZATION, INDEPENDENT HISTORIAN/HISTORIANS WERE USED TO OBTAIN COMPLETE MEDICAL HISTORY. I INDEPENDENTLY INTERPRETED THE TEST THAT WERE PERFORMED, RESULTS WERE REVIEWED BY ME AND CONSIDERED FINDINGS ON RADIOLOGY IF ORDERED. MEDICAL MANAGEMENT AND EXAMINATION INTERPRETATION DISCUSSIONS WERE HAD BY ME WITH OTHER QUALIFIED HEALTHCARE PROFESSIONALS INDICATED FOR THE PATIENT'S CARE. DX & DISP Disposition: Discharge Departure Impression: Primary Impression: Cholelithiasis Additional Impressions: Biliary colic symptom, Stage 3 chronic kidney disease, Hypocalcemia, Tension headache Condition: Stable Scripts Dicyclomine HCl (Bentyl) 20 Mg Tab 20 MG PO Q6HPRN PRN for PRN ABDOMINAL PAIN, #30 TAB Prov: EUFEMIA HICKS FIRST DYER 05/06/25 Butalb/Acetaminophen/Caffeine (Fioricet) 50 Mg-325 Mg-40 Mg Tab 2 TAB PO Q4PRN PRN for HEADACHE, #20 TAB 0 Refills Prov: EUFEMIA HICKSP 05/06/25 Additional Instructions: Follow-up with primary care provider in 1 to 2 days. Take medications as directed here in the emergency room. Okay to continue home medications unless otherwise discussed during your visit in the emergency room today. Return to your nearest emergency room if symptoms worsen or if there is no improvement. Call 911 if you need immediate assistance. Take Tylenol or Motrin [id number] as needed and if no contraindications are present. Increase oral hydration. A wound culture or urine culture was ordered here in the emergency room department please follow-up with primary care provider and advise them to get repeat ports from our facility. If you had any Jeffrey wrap/splints that were applied here, please do not remove them until you see your primary care or specialty. Follow a low-fat diet. Call general surgeon for appointment in the next one two days for follow up and management. Take Bentyl as directed for your abdominal pain. Take Fioricet as directed for your headaches and see your primary care doctor for follow up if no improvement in several days. Referrals: ALBERTO RODRIGUEZ MD (PCP) ALBIN MARS MD Time of Disposition: 15:41 I have reviewed the case, and I agree with, Diagnosis and Plan EUFEMIA HICKS FIRST DYER May 06, 2025 13:58
[2025-05-06] MEDS ORDERED: 0.9%NACL 1000ML 1,000 ML IV ONE (14:00)
--- NOTE | 2025-05-06 14:25 | EKG ---
[facility] Test Date: 2025-05-06 Test Time: 14:15:19 Pat Name: ROSE BEVERLY Department: [facility] Room: Gender: F Director Of Safety And Security: [id number] : 1960 Requested By: EUFEMIA HICKS Order Number: [id number] Reading MD: Clara Jimenez Measurements Intervals [place] Rate: 75 P: 14 [place]: 173 QRS: -18 QRSD: 88 T: 33 QT: 384 QTc: 429 Interpretive Statements Sinus rhythm Anteroseptal infarct, age indeterminate Compared to ECG 01/03/2025 14:41:30 Myocardial infarct finding now present Left-axis deviation no longer present T-wave abnormality no longer present Possible ischemia no longer present Prolonged QT interval no longer present Electronically Signed On 05-06-2025 17:16:25 BRADDER by Clara Jimenez Please click the below link to view image of tracing.
[2025-05-06 14:26] LABS: IMMATURE GRANULOCYTE ABSOLUTE 0.06 K/uL (0-1); NUCLEATED RED BLOOD CELLS 0.0 % (0.0-0.19); PLATELET COUNT (AUTO) 269 K/uL (130-400); RED BLOOD CELL COUNT(AUTO) 4.75 MIL/uL (4.00-5.50); RED CELL DISTRIBUTION WIDTH 15.3 % (11.0-15.5); WHITE BLOOD COUNT (AUTO) 9.5 K/uL (4.8-10.8)
[2025-05-06 14:29] VITALS: BP 136/90; PULSE 74; RESP 16; TEMP 98.1
[2025-05-06 14:34] LABS: CREATININE 1.0 mg/dL (0.5-1.0); GLOMERULAR FILTR. RATE CALC 63.0 mL/min (>90); GLUCOSE,RANDOM 87.0 mg/dL (70-105); SODIUM SERUM 140.0 mmol/L (136-145); UREA NITROGEN, BLOOD 19.0 mg/dL (7-18)
--- NOTE | 2025-05-06 15:04 | HMCIMG ---
STUDY: ULTRASOUND OF THE ABDOMEN, RIGHT UPPER QUADRANT, LIMITED HISTORY: Abdominal pain. TECHNIQUE: Right upper quadrant ultrasound with grayscale and color Doppler. COMPARISON: Prior abdominal ultrasound 03/03 8:37 EDT. FINDINGS: Liver: Measures 15.0 cm and appears normal in echotexture and contour. Gallbladder: Multiple tiny calculi are present. Wall thickness measures 3 mm. No pericholecystic fluid is identified. Sonographic Knight sign not assessed. Biliary tree: Common bile duct measures 3 mm. Pancreas: Not visualized due to overlying bowel gas. Right kidney: Measures 9.0 ??? 5.0 ??? 4.7 cm and appears normal without hydronephrosis. Miscellaneous: No ascites is identified. IMPRESSION: * Cholelithiasis without secondary sonographic signs of acute cholecystitis. * Common bile duct normal in caliber at 3 mm. * Nonvisualization of the pancreas due to bowel gas. * Normal right kidney. * Comparison: Gallbladder calculi are stable compared with the prior abdominal ultrasound. /[place]
[2025-05-06] MEDS ORDERED: FIORIT PO (15:42)
[2025-05-06] MEDS ORDERED: DICY20TA2 PO (15:42)
[2025-05-06] MEDS: DICYCLOMINE HCL 20 MG TAB PO ONE (15:59)
== END 2025-05-06 16:07 | disposition home or self-care (01) ==
LOC: EDH 13:46
DX: K80.70 Calculus of gallbladder and bile duct without cholecystitis without obstruction (principal); I12.9 Hypertensive chronic kidney disease with stage 1 through stage 4 chronic kidney disease, or unspecified chronic kidney disease; E11.22 Type 2 diabetes mellitus with diabetic chronic kidney disease; N18.30 Chronic kidney disease, stage 3 unspecified; G44.209 Tension-type headache, unspecified, not intractable; E83.51 Hypocalcemia; Z88.8 Allergy status to other drugs, medicaments and biological substances; Z91.048 Other nonmedicinal substance allergy status; Z79.899 Other long term (current) drug therapy; Z79.82 Long term (current) use of aspirin; Z79.02 Long term (current) use of antithrombotics/antiplatelets; Z90.710 Acquired absence of both cervix and uterus; Z96.653 Presence of artificial knee joint, bilateral; Z98.890 Other specified postprocedural states
CPT/HCPCS: 36415; 76705; 80048; 83690; 84484; 85025; 93005; 99284